=== PATIENT | female | born 1990 | race Caucasian/White ===

== ENCOUNTER → 2023-01-13 10:44 | Outpatient (CLI) | payer BC, SELFPAY ==
[2023-01-13 11:07] LABS: Basophils % 0.3 % (0.1-2.0); Eosinophils # 0.1 K/mm3 (0.0-0.4); Eosinophils % 1.4 % (0.1-12.0); Hematocrit 39.1 % (37.0-47.0); Hemoglobin 12.7 g/dL (12.2-16.2); Lymphocytes # 1.9 K/mm3 (0.7-4.5); Lymphocytes % 23.9 % (10-50); Mean Corpuscular HGB Conc 32.4 g/dL (31.8-35.4); Mean Corpuscular Hemoglobin 31.3 pg (27.0-31.2); Mean Corpuscular Volume 96.6 fl (81-99); Mean Platelet Volume 7.3 fl (7.4-10.4); Monocytes # 0.4 K/mm3 (0.1-1.0); Monocytes % 5.4 % (1.7-9.3); Neutrophils # 5.6 K/mm3 (1.8-7.8); Platelet Count 370 K/mm3 (142-424); Red Blood Count 4.04 M/mm3 (4.20-5.40); Red Cell Distribution Width 13.9 % (11.5-17.5); White Blood Count 8.1 K/mm3 (4.8-10.8)
[2023-01-13 13:05] LABS: Alanine Aminotransferase 17 U/L (12-78); Albumin Level 4.1 g/dl (3.5-5.0); Albumin/Globulin Ratio 1.3 (1.1-1.8); Alkaline Phosphatase 70 U/L (38-126); Anion Gap 15.9 mEq/L (5-15); Aspartate Amino Transferase 25 U/L (14-36); Bilirubin,Total 0.4 mg/dl (0.2-1.3); Blood Urea Nitrogen 17 mg/dl (7-17); Calcium 8.9 mg/dl (8.4-10.2); Carbon Dioxide 26 mmol/L (22.0-30.0); Chloride 103 mmol/L (98-107); Chol/HDL Ratio 2.7 (1-3.5); Cholesterol 218 mg/dl (140-200); Estimated Glomerular Filt Rate 96 ml/min (>60); GFR (African American) 116 ML/MIN (>60); Globulin 3.1 g/dL (1.3-3.2); Glucose 78 mg/dl (74-100); HDL Cholesterol 80 mg/dl (40-60); Potassium 4.9 mmoL/L (3.5-5.1); Sodium 140 mmol/L (136-145); Total Protein,Serum 7.2 g/dl (6.3-8.2); Triglycerides 106 mg/dl (30-150); VLDL Cholesterol 21 mg/dL (0-40)
[2023-01-13 13:16] LABS: Direct LDL Cholesterol 113.91 mg/dL (100-129)
[2023-01-13 13:22] LABS: 25-OH Vitamin D, Total 39.6 ng/mL (30-100)
[2023-01-13 13:24] LABS: T4 (Thyroxine) 10.6 ug/dl (5.53-11.0)
[2023-01-13 13:37] LABS: Thyroid Stimulating Hormone 2.15 uIU/mL (0.465-4.68)
== END ==
PROVIDERS: PCP Emergency Medicine; Visit Provider Emergency Medicine
DX: Z00.00 Encounter for general adult medical examination without abnormal findings (principal); F31.9 Bipolar disorder, unspecified; E66.3 Overweight; Z68.26 Body mass index [BMI] 26.0-26.9, adult
CPT/HCPCS: 36415; 80053; 80061; 82306; 84436; 84443; 85025

== ENCOUNTER → 2023-02-06 23:13 | Outpatient (CLI) | payer BC, SELFPAY | PROVIDERS: PCP Nurse Practitioner Family; Visit Provider Nurse Practitioner Family | DX: N39.0 Urinary tract infection, site not specified (principal) | CPT/HCPCS: 87086 ==

== ENCOUNTER → 2023-04-08 14:16 | Outpatient (CLI) | payer BC, SELFPAY ==
--- NOTE | 2023-04-08 14:52 | XR_ITS ---
FINAL REPORT CLINICAL HISTORY: hip pain FINDINGS: 2 views of the left hip and an AP pelvis were obtained. There is no acute fracture or dislocation. The joint spaces are intact. There are no soft tissue abnormalities. IMPRESSION: No acute process. Reviewed, Interpreted and Dictated by Leonard Condon III, MD Transcribed by Robert Canales Authenticated and [facility]
--- NOTE | 2023-04-08 14:52 | XR_ITS ---
FINAL REPORT CLINICAL HISTORY: hip pain FINDINGS: 2 views of the right hip were obtained. There is no acute fracture or dislocation. The joint spaces are intact. There are no soft tissue abnormalities. IMPRESSION: No acute process. Reviewed, Interpreted and Dictated by Leonard Condon III, MD Transcribed by Robert Canales Authenticated and [facility]
[2023-04-08 15:31] LABS: C-Reactive Protein 12.9 mg/L (0-4)
[2023-04-10 12:21] LABS: Anti-Centromere B Antibodies <0.2 AI (0.0-0.9); Anti-DNA (DS) Ab Qn 2 IU/mL (0-9); Anti-Jo-1 <0.2 AI (0.0-0.9); Anti-Smith Antibody <0.2 AI (0.0-0.9); Antichromatin Antibodies <0.2 AI (0.0-0.9); Antiscleroderma-70 Antibodies <0.2 AI (0.0-0.9); RNP Antibodies <0.2 AI (0.0-0.9); Sjogren's Anti-SS-A <0.2 AI (0.0-0.9); Sjogren's Anti-SS-B <0.2 AI (0.0-0.9)
[2023-04-10 16:06] LABS: Anti-Cyclic Citrullinated Pept 10 units (0-19); RA Latex Turbid. <10.0 IU/mL (<14.0)
[2023-04-11 17:41] LABS: Lupus Reflex Interpretation Comment: (.); PTT-LA 37.9 sec (0.0-43.5); dRVVT 33.7 sec (0.0-47.0)
== END ==
PROVIDERS: PCP Emergency Medicine; Visit Provider Emergency Medicine
DX: M79.2 Neuralgia and neuritis, unspecified (principal); M25.551 Pain in right hip; M25.552 Pain in left hip
CPT/HCPCS: 36415; 73502; 85613; 86140; 86200; 86225; 86235; 86431

== ENCOUNTER → 2023-05-01 12:41 | Outpatient (CLI) | payer BC, SELFPAY ==
--- NOTE | 2023-05-01 12:47 | MR_ITS ---
FINAL REPORT CLINICAL HISTORY: back pain COMPARISON: None FINDINGS: Multiplanar MR imaging of the lumbar spine was performed without contrast. On the sagittal T2-weighted images, disc degeneration is seen at multiple levels. The vertebral alignment is normal. There is no evidence of fracture. No bony mass is identified. The conus has an unremarkable appearance. L1-2: There is no significant canal stenosis or neural foraminal narrowing. L2-3: An annular bulge is present. There is no significant canal stenosis or neural foraminal narrowing. L3-4: An annular bulge is present. There is no significant canal stenosis or neural foraminal narrowing. L4-5: There is a small left foraminal protrusion which produces mild left neural foraminal narrowing. L5-S1: There is a probable right L5 pars intra articularis defect. There is no significant canal stenosis or neural foraminal narrowing. IMPRESSION: Mild multilevel degenerative disc disease and spondylosis as described. 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 If clinically indicated CT could confirm. Reviewed, Interpreted and Dictated by Leonard Condon III, MD Transcribed by Emperatriz Lopez Authenticated and [facility]
== END ==
PROVIDERS: PCP Nurse Practitioner Family; Visit Provider Emergency Medicine
DX: M54.9 Dorsalgia, unspecified (principal); M54.50 Low back pain, unspecified
CPT/HCPCS: 72148; 76376

== ENCOUNTER → 2023-06-06 13:58 | Outpatient (POV) | payer BC, SELFPAY ==
[2023-06-06 14:33] VITALS: BP 126/81; PULSE 82; RESP 18; O2SAT 96; BMI 24.0
--- NOTE | 2023-06-06 14:37 | EXP.PAIN.OV ---
HPI Data of Consult Patient: new to practice Consult date: 06/06/23 Requesting Physician: Ranjan Flores CRNA Primary Care Provider: Gamaliel Cancino MD Consult Narrative Reason for consult: Lumbar back pain. Bilateral hip and leg radicular symptoms. History of present illness: Ms. Samuels is a 32 year old female who comes our clinic today for initial consultation regarding chronic low back pain she describes as constant, dull, aching, sharp, stabbing. Patient also complains of bilateral hip and leg radicular symptoms. She rates her pain 8/10. Patient's lumbar MRI shows multilevel degenerative disc. Multilevel disc bulge. L3-4, L4-5 as well as L5-S1. Also, probable right L5 pars interarticularis defect. No significant canal stenosis or neuroforaminal narrowing. Patient was treated by PCP with Tylenol 3. She is also been taking NSAIDs as needed. Patient's Navid #[id number] has been reviewed and appropriate. Patient also taking ADHD medication chronically. I discussed in detail with the patient regarding treatment options. We will start with physical therapy for the lumbar spine. I will start the patient on Mobic 15 mg 1 daily. CC: Ranjan Flores CRNA [facility] Disclaimer: The information contained in this section may have been updated after the patient was seen, as this information can be updated by other users. Medical History Anxiety Depression Manic bipolar I disorder Neuropathic pain Surgical History H/O: Family History (Updated 06/06/23 @ 14:35 by Chetna Rocha RN) Other Unknown family medical history Social History (Updated 06/06/23 @ 14:36 by Chetna Rocha RN) Smoking Status: Never smoker alcohol intake: never substance use type: denies use current occupational status: employed Travel in the last 8 weeks: None Meds Home Medications and Allergies Home Medications Medication Instructions Recorded Confirmed Type norethindrone 1 mg-ethinyl 1 tab PO 01/03/23 05/07/23 History estradiol 10 mcg (24)-iron 10 mcg(2) tablet (Lo Loestrin Fe) diclofenac sodium 1 % topical gel 2 g topical QID #100 grams 04/08/23 05/07/23 Rx lidocaine 5 % topical patch 1 patch topical DAILY #30 ea 04/08/23 05/07/23 Rx acetaminophen 300 mg-codeine 30 mg 1 tab PO BID 10 days #20 tabs 04/25/23 05/07/23 Rx tablet cariprazine 3 mg capsule (Vraylar) 3 mg PO DAILY #30 caps 05/07/23 Rx clonazepam 1 mg tablet (Klonopin) 1 mg PO TID #90 tabs 05/07/23 05/07/23 Rx dextroamphetamine-amphetamine 20 20 mg PO BID #60 tabs 05/07/23 05/07/23 Rx mg tablet (Adderall) gabapentin 600 mg tablet 600 mg PO TID #90 tabs 05/07/23 05/07/23 Rx temazepam 30 mg capsule (Restoril) 30 mg PO HS #30 caps 05/07/23 05/07/23 Rx New Prescriptions to Start Prescriptions: Allergies Allergy/AdvReac Type Severity Reaction Status Date / Time azithromycin [From Zithromax] AdvReac Verified 05/07/23 08:27 Assessment and Plan *Assessment and plan (1) Lumbar radicular pain: Status: Acute Category: Medical Code(s): M54.16 - Radiculopathy, lumbar region (2) Lumbar back pain: Status: Acute Category: Medical Code(s): M54.50 - Low back pain, unspecified Plan I will send the patient for physical therapy for the lumbar back as well as bilateral hip and leg radicular symptoms. We will start Mobic 15 mg 1 p.o. daily. Patient will return to see us after physical therapy. I briefly discussed with her regarding injection interventions for the low back. Answered her questions.
== END ==
LOC: SC.PAIN 13:59
PROVIDERS: PCP Emergency Medicine; Visit Provider Nurse Anesthetist, Certified Registered
DX: M54.16 Radiculopathy, lumbar region (principal); M54.50 Low back pain, unspecified
CPT/HCPCS: 99202; G0463

== ENCOUNTER 2023-07-24 16:00 | Outpatient (RCR) | payer BC, SELFPAY ==
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
== END 2023-07-24 17:00 | disposition home or self-care (01) ==
LOC: PT 16:00
PROVIDERS: PCP Emergency Medicine; Visit Provider Nurse Practitioner Family
DX: M51.36 Other intervertebral disc degeneration, lumbar region (principal); M54.50 Low back pain, unspecified
CPT/HCPCS: 97010; 97014; 97110; 97163; G0283

== ENCOUNTER 2023-07-24 18:07 | Emergency (ER) | payer BC, SELFPAY ==
--- NOTE | 2023-07-24 18:04 | ECG_ITS ---
APPROVED REPORT Exam: Resting ECG HR:90 bpm ECG Measurements Heart Rate 90 AXES OH 158 P 73 QRSd 74 QRS 89 QT 335 T 68 QTc 383 Conclusion SINUS RHYTHM NORMAL ECG UNCONFIRMED REPORT Electronically signed by : Alfonso Zacarias MD 07/25/2023 07:46:34
[2023-07-24 18:07] VITALS: BP 105/74; PULSE 95; RESP 17; TEMP 36.4; O2SAT 100; BMI 23.5
--- NOTE | 2023-07-24 18:22 | HMH.EDGENADL ---
Discharge Plan Disposition Patient Disposition: Left Against Medical Advice Chief Complaint: Overdose Prescriptions Prescriptions: No Action Lo Loestrin Fe 1 mg-10 mcg (24)/10 mcg (2) tablet 1 tab PO DIRECTED diclofenac sodium 1 % gel 2 g topical QID Qty: 100 1RF Rx Instructions: apply to single elbow, wrist or hand; for hand includes palm/fingers/back of hand lidocaine 5 % adhesive patch,medicated 1 patch topical DAILY Qty: 30 1RF Rx Instructions: leave on most painful area for up to 12 hrs clonazepam [Klonopin] 1 mg tablet 1 mg PO TID Qty: 90 1RF gabapentin 600 mg tablet 600 mg PO TID Qty: 90 1RF temazepam [Restoril] 30 mg capsule 30 mg PO HS Qty: 30 1RF dextroamphetamine-amphetamine [Adderall] 20 mg tablet 20 mg PO BID Qty: 60 0RF Rx Instructions: administer doses at least 4-6 hours apart acetaminophen-codeine 300-30 mg tablet 1 tab PO BID 10 Days Qty: 20 0RF Vraylar 3 mg capsule 3 mg PO DAILY Qty: 30 2RF Referrals Follow up/Referrals: Provider,Referral, MD [Primary Care Provider] - See instructions Clinical Impressions Clinical Impression: Opiate overdose Discharge ED Provider: Smiley Greene General Adult HPI General Chief complaint: Overdose Stated complaint: Overdose Time Seen by Provider: 07/24/23 18:16 Mode of Arrival: EMS Source of Information: Patient and EMS Limitations: No Limitations Description of Symptoms (Recalled from ER Triage Doc. by RN): pt presents to ED for overdose. pt reports she does have chronic back pain, when she was getting off work a friend of hers gave her some pills in an ibuprofen bottle . pt reports that she waited to get home before she took the pills. pt states that she only remembers taking the pills and putting up her tarot cards and then she woke up to her above her. pt did receive 2mg of nasal narcan and did wake up and respond well to that. History of Present Illness HPI narrative: Is a 32-year-old female presenting today after an overdose. She states that she was at a [employer] party at work told someone that she was having some chronic back pain and they gave her 3 pills out of an ibuprofen bottle. She does not recall events following this. EMS was called she had a pulse and was breathing upon their arrival apparently there may have been some bystander CPR but this is not clear. She received a total of 2 mg of nasal Narcan and responded well to that. She denies any other coingestions or any attempt to harm herself. Unsure as to exactly what she took. Denies any history of recent injection drug use has recently been tested for HIV and hepatitis C and was negative for that. Other than the back pain denies any other significant medical problems in the past. Related Data Home Medications Medication Instructions Recorded Confirmed norethindrone 1 mg-ethinyl 1 tab PO DIRECTED 01/03/23 05/07/23 estradiol 10 mcg (24)-iron 10 mcg(2) tablet (Lo Loestrin Fe) Previous Rx's Medication Instructions Recorded diclofenac sodium 1 % topical gel 2 g topical QID #100 grams 04/08/23 lidocaine 5 % topical patch 1 patch topical DAILY #30 ea 04/08/23 acetaminophen 300 mg-codeine 30 mg 1 tab PO BID 10 days #20 tabs 04/25/23 tablet cariprazine 3 mg capsule (Vraylar) 3 mg PO DAILY #30 caps 05/07/23 clonazepam 1 mg tablet (Klonopin) 1 mg PO TID #90 tabs 05/07/23 dextroamphetamine-amphetamine 20 20 mg PO BID #60 tabs 05/07/23 mg tablet (Adderall) gabapentin 600 mg tablet 600 mg PO TID #90 tabs 05/07/23 temazepam 30 mg capsule (Restoril) 30 mg PO HS #30 caps 05/07/23 Allergies Allergy/AdvReac Type Severity Reaction Status Date / Time azithromycin [From Zithromax] AdvReac Verified 05/07/23 08:27 [facility] Disclaimer: The information contained in this section may have been updated after the patient was seen, as this information can be updated by other users. Medical History Anxiety Depression Manic bipolar I disorder Neuropathic pain Surgical History H/O: Family History (Updated 06/06/23 @ 14:35 by Chetna Rocha RN) Other Unknown family medical history Social History (Updated 06/06/23 @ 14:36 by Chetna Rocha RN) Smoking Status: Current every day smoker alcohol intake: never substance use type: denies use current occupational status: employed Travel in the last 8 weeks: None ROS Obtained: Yes All systems reviewed & no additional complaints except as documented Physical Exam General General appearance: alert and lethargic Respiratory Respiratory exam: Present normal lung sounds bilaterally Cardiovascular Cardiovascular exam: Present regular rate Neurological Exam Neurological exam: Present alert, oriented X3 and other (Patient somewhat somnolent but has a GCS of 15 and a nonfocal neurologic exam) Medical Decision Making Navid Inquiry Pt receiving controlled substance: No Vital Signs: 07/24/23 18:07 07/24/23 19:31 Temperature 97.5 F L Temperature Source Oral Pulse Rate 105 H Pulse Rate [Left Radial] 95 H Respiratory Rate 17 18 Blood Pressure 109/76 L Blood Pressure [Right Arm] 105/74 L Blood Pressure Mean [Right Arm] 84 Blood Pressure Source Automatic Cuff Blood Pressure Position Sitting 02 Sat by Pulse Oximetry 100 100 Oxygen Delivery Method Room Air Room Air Medical Decision Narrative: Is a 32-year-old female who was healthy prior to taking unknown substances at a [employer]. Given the fact that she had respiratory depression and responded with Narcan and this is consistent with an opioid overdose. Most likely fentanyl or heroin. No indication for testing for coingestions at this point. Will observe her for several hours and reassess just to make sure that she has no ongoing respiratory depression and that she did not take something more long-acting. She has no current complaints. In ED observation order was placed at 6:24 PM I will reassess her in about 2 hours. EKG performed which I first interpreted shows a ventricular rate of 90 normal sinus rhythm specifically no evidence of any significant conduction abnormalities to suggest an alternative overdose agent such as sodium channel blockade etc. Normal axis no acute ischemic changes nondiagnostic emergency EKG. At 739 patient states that she would like to leave. My plan was to keep an eye on her for 2 hours she is awake alert oriented answering questions appropriately has a medical decision capacity to make this decision I advised her that if her opiates are long-acting she could have recurrence of symptoms which is unlikely at this point but she understands her could be disability and and she signed out AGAINST MEDICAL ADVICE. Critical Care Critical Care Time Critical Care Time: No
[2023-07-24 19:31] VITALS: BP 109/76; PULSE 105; RESP 18; O2SAT 100
[2023-07-24 19:42] VITALS: BP 109/76; PULSE 105; RESP 18; TEMP 36.8; O2SAT 99
== END 2023-07-24 19:46 | disposition left against medical advice (07) ==
PROVIDERS: Emergency Provider Student in an Organized Health Care Education/Training Program
DX: T40.2X1A Poisoning by other opioids, accidental (unintentional), initial encounter (principal); G62.9 Polyneuropathy, unspecified; F17.200 Nicotine dependence, unspecified, uncomplicated
CPT/HCPCS: 93005; 99283

== ENCOUNTER 2024-09-04 13:07 | Emergency (ER) | payer BC, SELFPAY ==
[2024-09-04 13:11] VITALS: BP 143/101; PULSE 85; RESP 20; TEMP 36.7; O2SAT 100; BMI 22.3
[2024-09-04 13:30] VITALS: BP 123/85; PULSE 74; O2SAT 96
[2024-09-04 13:34] LABS: Microscopic, Urine URINE MICROSCOPIC (MICROSCOPIC)
--- NOTE | 2024-09-04 13:38 | PC.NURSE ---
staff at bedside to attempt u/s guided IV and blood draw, as pt reports: no one can get me. I have to have them poke every single finger to get my blood . Dr. Guerin notified that pt is a difficulty stick.
[2024-09-04 13:44] LABS: Appearance,Urine SL CLOUDY (Clear); Bilirubin,Urine Negative (Negative); Blood, Urine 3+ (Negative); Color,Urine YELLOW (Yellow); Glucose,Urine (UA) Negative (Negative); Ketones,Urine Negative (Negative); Leukocyte Esterase,Urine 1+ (Negative); Nitrate,Urine POSITIVE (Negative); PH,Urine 6.5 (5.0-8.5); Protein,Urine Negative (Negative); Urobilinogen,Urine 0.2 EU/dl (0.2)
--- NOTE | 2024-09-04 13:45 | PC.NURSE ---
ATTEMPTED TO PLACE IV VIA US, IV IN PLACE, PT MOVING AROUND IN BED, UNCOMFORTABLE. UNABLE TO SECURE IV. PT STATES SHE DOESN'T WANT TO BE STUCK AGAIN. AWARE
--- NOTE | 2024-09-04 13:54 | PC.NURSE ---
DR KAUR AT BEDSIDE TO UPDATE PT, ATTEMPT TO START USIV
[2024-09-04 14:06] LABS: Bacteria,Urine 4+ /lpf
[2024-09-04 14:08] VITALS: PULSE 76; O2SAT 100
[2024-09-04 14:17] LABS: Basophils % 0.3 % (0.1-2.0); Eosinophils % 0.3 % (0.1-12.0); Hematocrit 38.9 % (37.0-47.0); Hemoglobin 12.8 g/dL (12.2-16.2); Lymphocytes # 1.8 K/mm3 (0.7-4.5); Lymphocytes % 28.3 % (10-50); Mean Corpuscular HGB Conc 32.9 g/dL (31.8-35.4); Mean Corpuscular Hemoglobin 31.7 pg (27.0-31.2); Mean Corpuscular Volume 96.3 fl (81-99); Mean Platelet Volume 9.4 fl (7.4-10.4); Monocytes # 0.6 K/mm3 (0.1-1.0); Monocytes % 9.1 % (1.7-9.3); Neutrophils # 3.9 K/mm3 (1.8-7.8); Neutrophils % 61.8 % (37.0-80.0); Platelet Count 275 K/mm3 (142-424); Red Blood Count 4.04 M/mm3 (4.20-5.40); Red Cell Distribution Width 12.6 % (11.5-17.5); White Blood Count 6.2 K/mm3 (4.8-10.8)
--- NOTE | 2024-09-04 14:27 | PC.NURSE ---
rn went to place bp cuff back on patient to continue monitor after ultrasound iv placed and pt states i cant tolerate that around my arm right now rn laid cuff next to patient on bed and made er dr and charge nurse aware
--- NOTE | 2024-09-04 14:32 | HMH.EDGENADL ---
Discharge Plan Disposition Patient Disposition: Home, Self-Care Condition: Good Prescriptions Prescriptions: New nitrofurantoin monohyd/m-cryst [Macrobid] 100 mg capsule 100 mg PO BID 5 Days Qty: 10 0RF Rx Instructions: must administer with a meal/food No Action clonazepam [Klonopin] 1 mg tablet 1 mg PO TID Qty: 90 1RF Vraylar 3 mg capsule 3 mg PO DAILY Qty: 30 2RF Referrals Follow up/Referrals: Abe Gutierrez MD [Primary Care Provider] - See instructions Activity Restrictions/Add. Instructions Additional Instructions/Restrictions: Call Dr. Cagle's office on Friday to schedule an appointment. Say that you were seen in the ED and she will see you next week. Return to the emergency department if you feel lightheaded, have worsening bleeding or become concerned for your health. Clinical Impressions Clinical Impression: UTI (urinary tract infection), Vaginal bleeding Instructions Patient Instructions: DI for Acute Abdominal Pain Print Language Print Language: Turkish Discharge ED Provider: Mayra Guerin General Adult HPI <Mayra Guerin MD - Last Filed: 09/04/24 15:21> General Chief complaint: Abdominal Pain Stated complaint: Miscarrige+2, vaginal bleeding and abd/back pain Time Seen by Provider: 09/04/24 13:18 Mode of Arrival: Ambulatory Source of Information: Patient Limitations: No Limitations Description of Symptoms (Recalled from ER Triage Doc. by RN): Patient presents ambulatory to triage. States she had a miscarriage two weeks ago. States she did not go to the OBGYN. States she performed three urine tests at home, then fell, and subsequently started bleeding. Patient states, I've had a miscarriage before so I know what they're like. Endorses abdominal pain, nausea, and vomiting. Denies urinary symptoms. Patient states she has a history of anemia with multiple blood transfusions throughout her life. States she is continuing to bleed. Denies passing clots. States she is currently going through two large pads a day. History of Present Illness HPI narrative: 34-year-old female G8, P5 presents to the ER with complaints of lower abdominal pain and vaginal bleeding. She reports she believes she had a miscarriage 2 weeks ago. She has had multiple positive urine test at home beginning 3 weeks ago. Shortly after her initial positive test she had a fall and then started bleeding. She states that she has had miscarriages before so she knows what they are like. She has had low abdominal pain, nausea, vomiting. She denies dysuria or hematuria, she states the pain does radiate to her low back and feels cramping. She states some days she has heavy bleeding pouring out but today she has decreased bleeding. She states she has passed clots. She is going through 2 large pads a day at this time. She states she is concerned for retained products because she has had that previously. She has not taken any medications for her symptoms today. She has had previous C-sections but no other abdominal surgeries. She denies fevers, chills, headache, dizziness, numbness, tingling, weakness, chest pain, shortness of breath, or cough. Related Data Previous Rx's ?Medication ?Instructions ?Recorded cariprazine 3 mg capsule (Vraylar) 3 mg PO DAILY #30 caps 05/07/23 clonazepam 1 mg tablet (Klonopin) 1 mg PO TID #90 tabs 05/07/23 nitrofurantoin 100 mg PO BID 5 days #10 caps 09/04/24 monohydrate/macrocrystals 100 mg capsule (Macrobid) Allergies Allergy/AdvReac Type Severity Reaction Status Date / Time azithromycin (From Zithromax) AdvReac Verified 05/07/23 08:27 [facility] <Mayra Guerin MD - Last Filed: 09/04/24 15:21> [facility] Disclaimer: The information contained in this section may have been updated after the patient was seen, as this information can be updated by other users. Medical History Anxiety Depression Manic bipolar I disorder Neuropathic pain Surgical History H/O: Family History (Updated 06/06/23 @ 14:35 by Chetna Rocha RN) Other Unknown family medical history Social History (Updated 06/06/23 @ 14:36 by Chetna Rocha RN) Smoking Status: Current every day smoker alcohol intake: never substance use type: denies use current occupational status: employed Travel in the last 8 weeks: None Have you lived/traveled outside US in past 30 days?: No Contact w/someone who lives/traveled outside US past 30 days?: No Exposure to someone with infectious disease in past 14 days?: No Do you have a fever (greater than 100.4 F or 38 C)?: No Have you tested positive for COVID-19: No Exposed to someone with COVID-19 in past 14 days?: No Do you have a sore throat?: No Do you have a cough?: No Do you have any weakness?: No Do you have any diarrhea?: No Are you experiencing any unusual bleeding?: No Do you have any muscle aches/pain?: No Do you have any abdominal pain?: Yes Are you experiencing loss of taste or smell?: No Other Medical History Have you received the Flu Vaccine for this season: No Have you received the Pneumonia Vaccine: No <Mayra Guerin MD - Last Filed: 09/04/24 15:21> ROS Obtained: Yes Systems reviewed as appropriate & no additional complaints except as documented Physical Exam <Mayra Guerin MD - Last Filed: 09/04/24 15:21> General General appearance: alert and in no apparent distress Head Head exam: atraumatic and normocephalic Eye Eye exam: Present PERRL and EOMI ENT ENT exam: Present mucous membranes moist Neck Neck exam: Present normal inspection and full ROM Chest Chest inspection: Present symmetric chest wall rise Respiratory Respiratory exam: Absent respiratory distress or stridor Cardiovascular Cardiovascular exam: Present regular rate and normal rhythm Abdominal Exam Abdominal exam: Present soft, tenderness (Suprapubic) and guarding (Voluntary); Absent distention, rebound or rigidity Extremities Exam Extremities exam: Present full ROM Neurological Exam Neurological exam: Present alert and oriented X3; Absent motor sensory deficit Psychiatric Psychiatric exam: Present normal affect and normal mood Skin Skin exam: Present warm and dry Medical Decision Making <Mayra Guerin MD - Last Filed: 09/04/24 15:21> Medical Records Medical records reviewed: Yes I reviewed the patient's medical records. Screening: Per USPSTF and CDC recommendations, given the prevalence of disease in our region, it is our hospital?s policy to screen for HIV and viral Hepatitis for all patients aged 18 and over and those with ongoing risk factors. MR Comment: Patient has been seen by pain management for lumbar back pain with radicular symptoms. Patient was recommended for physical therapy and started Mobic. She never followed back up with pain management after that visit. Navid Inquiry Pt receiving controlled substance: No Vital Signs: 09/04/24 13:11 09/04/24 13:30 09/04/24 14:08 Temperature 98.1 F Temperature Source Oral Pulse Rate 74 76 Pulse Rate [Radial] 85 Respiratory Rate 20 Blood Pressure 123/85 Blood Pressure [R Arm] 143/101 H Blood Pressure Mean [R Arm] 115 Blood Pressure Position [R Arm] Sitting 02 Sat by Pulse Oximetry 100 96 100 Oxygen Delivery Method Room Air Room Air Lab Data Lab Results 09/04/24 13:20: Urine Color Yellow, Urine Appearance Sl cloudy, Urine pH 6.5, Ur Specific [place] 1.020, Urine Protein Negative, Urine Glucose (UA) Negative, Urine Ketones Negative, Urine Blood 3+ A, Urine Nitrate Positive A, Urine Bilirubin Negative, Urine Urobilinogen 0.2, Ur Leukocyte Esterase 1+ A, Urine RBC 5-10, Urine WBC 10-20, Ur Squamous Epith Cells 3-5, Urine Bacteria 4+ 09/04/24 13:46: Sodium 138, Potassium 4.3, Chloride 101, Carbon Dioxide 30, Anion Gap 11.3, BUN 10, Creatinine 0.70, Estimated Creat Clear 103, Estimated GFR 95, Est GFR ( Amer) 115, Glucose 86, Calcium 9.1, Total Bilirubin 0.2, AST 27, ALT 20, Alkaline Phosphatase 62, Total Protein 7.4, Albumin 4.3, Globulin 3.1, Albumin/Globulin Ratio 1.4, HCG, Quant < 2 09/04/24 14:00: HCV Ab ASHLEY w/Rflx PCR Qn Reactive, HIV Ag/Ab Combo Qual Negative 09/04/24 14:08: WBC 6.2, RBC 4.04 L, Hgb 12.8, Hct 38.9, MCV 96.3, MCH 31.7 H, MCHC 32.9, RDW 12.6, Plt Count 275, MPV 9.4, Neut % (Auto) 61.8, Lymph % (Auto) 28.3, [place] % (Auto) 9.1, Eos % (Auto) 0.3, Baso % (Auto) 0.3, Neut # (Auto) 3.9, Lymph # (Auto) 1.8, [place] # (Auto) 0.6, Eos # (Auto) 0.0, Baso # (Auto) 0.0, Blood Type A Positive 09/04/24 14:08 09/04/24 13:46 Orders (Tests/Meds): ED MEDICATIONS Discontinued Medications Generic Name Dose Route Start Last Admin Trade Name Warner PRN Reason Stop Dose Admin Ketorolac Tromethamine 15 mg 09/04/24 15:05 09/04/24 15:52 Ketorolac 30mg/Ml Vial IV 09/04/24 15:06 15 mg ONCE ONE Administration Nitrofurantoin Macrocrystals 100 mg 09/04/24 14:22 09/04/24 15:52 Nitrofurantoin 100mg Capsule PO 09/04/24 14:23 100 mg ONCE ONE Administration ORDERS Category Date Time Status ABO/RH Type Stat BBK 09/04/24 14:08 Completed Beta HCG, Quant [HCG,Quantitative] Stat Lab 09/04/24 13:46 Completed CBC w/Auto Diff [Complete Blood Count Auto Diff] Stat Lab 09/04/24 14:08 Completed CMP [Comprehensive Metabolic Panel] Stat Lab 09/04/24 13:46 Completed HCV RNA PCR, Quant Stat Lab 09/04/24 14:00 Received HIV Combo Stat Lab 09/04/24 14:00 Completed Hepatitis C Ab Qual. W/ RFX Stat Lab 09/04/24 14:00 Completed PT INR [Prothrombin Time INR] Stat Lab 09/04/24 Received PTT [Activated Partial Thrombo Time] Stat Lab 09/04/24 Received Urinalysis and Microscopic Stat Lab 09/04/24 13:20 Completed Urine Culture Stat Micro 09/04/24 13:20 Received US OB transvaginal Stat Ultrasound 09/04/24 14:57 Taken Medical Decision Narrative: In summary, this 34-year-old female G8, P5 believed to be approximately 6-7 weeks based on LMP presents to the emergency department today with abdominal pain, vaginal bleeding. On initial evaluation patient is hemodynamically stable, afebrile, she does have suprapubic tenderness to palpation with voluntary guarding, no rebound, no peritonitic findings. Differential diagnosis includes but is not limited to intrauterine , ectopic, miscarriage, retained products of conception, anemia, coagulopathy, urinary tract infection, also considered appendicitis though I have lower suspicion for this given patient's multiple weeks of lower abdominal pain and vaginal bleeding. Based on these concerns, I ordered serum labs including quantitative hCG, urine studies, coags. Labs personally reviewed demonstrate patient has evidence of urinary tract infection nitrate positive with WBCs and bacteria. Receiving Macrobid for treatment. She has no leukocytosis, no anemia, normal platelets. CMP, quantitative hCG, coags pending. Transvaginal ultrasound has been ordered, this is also pending. Patient handed off to Dr. Sutton at physician shift change for further management and disposition. <Alexys Sutton MD - Last Filed: 09/04/24 16:09> Vital Signs: 09/04/24 13:11 09/04/24 13:30 09/04/24 14:08 Temperature 98.1 F Temperature Source Oral Pulse Rate 74 76 Pulse Rate [Radial] 85 Respiratory Rate 20 Blood Pressure 123/85 Blood Pressure [R Arm] 143/101 H Blood Pressure Mean [R Arm] 115 Blood Pressure Position [R Arm] Sitting 02 Sat by Pulse Oximetry 100 96 100 Oxygen Delivery Method Room Air Room Air Lab Data Lab Results 09/04/24 13:20: Urine Color Yellow, Urine Appearance Sl cloudy, Urine pH 6.5, Ur Specific [place] 1.020, Urine Protein Negative, Urine Glucose (UA) Negative, Urine Ketones Negative, Urine Blood 3+ A, Urine Nitrate Positive A, Urine Bilirubin Negative, Urine Urobilinogen 0.2, Ur Leukocyte Esterase 1+ A, Urine RBC 5-10, Urine WBC 10-20, Ur Squamous Epith Cells 3-5, Urine Bacteria 4+ 09/04/24 13:46: Sodium 138, Potassium 4.3, Chloride 101, Carbon Dioxide 30, Anion Gap 11.3, BUN 10, Creatinine 0.70, Estimated Creat Clear 103, Estimated GFR 95, Est GFR ( Amer) 115, Glucose 86, Calcium 9.1, Total Bilirubin 0.2, AST 27, ALT 20, Alkaline Phosphatase 62, Total Protein 7.4, Albumin 4.3, Globulin 3.1, Albumin/Globulin Ratio 1.4, HCG, Quant < 2 09/04/24 14:00: HCV Ab ASHLEY w/Rflx PCR Qn Reactive, HIV Ag/Ab Combo Qual Negative 09/04/24 14:08: WBC 6.2, RBC 4.04 L, Hgb 12.8, Hct 38.9, MCV 96.3, MCH 31.7 H, MCHC 32.9, RDW 12.6, Plt Count 275, MPV 9.4, Neut % (Auto) 61.8, Lymph % (Auto) 28.3, [place] % (Auto) 9.1, Eos % (Auto) 0.3, Baso % (Auto) 0.3, Neut # (Auto) 3.9, Lymph # (Auto) 1.8, [place] # (Auto) 0.6, Eos # (Auto) 0.0, Baso # (Auto) 0.0, Blood Type A Positive Orders (Tests/Meds): ED MEDICATIONS Discontinued Medications Generic Name Dose Route Start Last Admin Trade Name Freq PRN Reason Stop Dose Admin Ketorolac Tromethamine 15 mg 09/04/24 15:05 09/04/24 15:52 Ketorolac 30mg/Ml Vial IV 09/04/24 15:06 15 mg ONCE ONE Administration Nitrofurantoin Macrocrystals 100 mg 09/04/24 14:22 09/04/24 15:52 Nitrofurantoin 100mg Capsule PO 09/04/24 14:23 100 mg ONCE ONE Administration ORDERS Category Date Time Status ABO/RH Type Stat BBK 09/04/24 14:08 Completed Beta HCG, Quant [HCG,Quantitative] Stat Lab 09/04/24 13:46 Completed CBC w/Auto Diff [Complete Blood Count Auto Diff] Stat Lab 09/04/24 14:08 Completed CMP [Comprehensive Metabolic Panel] Stat Lab 09/04/24 13:46 Completed HCV RNA PCR, Quant Stat Lab 09/04/24 14:00 Received HIV Combo Stat Lab 09/04/24 14:00 Completed Hepatitis C Ab Qual. W/ RFX Stat Lab 09/04/24 14:00 Completed PT INR [Prothrombin Time INR] Stat Lab 09/04/24 Received PTT [Activated Partial Thrombo Time] Stat Lab 09/04/24 Received Urinalysis and Microscopic Stat Lab 09/04/24 13:20 Completed Urine Culture Stat Micro 09/04/24 13:20 Received US OB transvaginal Stat Ultrasound 09/04/24 14:57 Taken Medical Decision Narrative: In summary, this 34-year-old female G8, P5 believed to be approximately 6-7 weeks based on LMP presents to the emergency department today with abdominal pain, vaginal bleeding. On initial evaluation patient is hemodynamically stable, afebrile, she does have suprapubic tenderness to palpation with voluntary guarding, no rebound, no peritonitic findings. Differential diagnosis includes but is not limited to intrauterine , ectopic, miscarriage, retained products of conception, anemia, coagulopathy, urinary tract infection, also considered appendicitis though I have lower suspicion for this given patient's multiple weeks of lower abdominal pain and vaginal bleeding. Based on these concerns, I ordered serum labs including quantitative hCG, urine studies, coags. Labs personally reviewed demonstrate patient has evidence of urinary tract infection nitrate positive with WBCs and bacteria. Receiving Macrobid for treatment. She has no leukocytosis, no anemia, normal platelets. CMP, quantitative hCG, coags pending. Transvaginal ultrasound has been ordered, this is also pending. Patient handed off to Dr. Sutton at physician shift change for further management and disposition. I Alexys Sutton MD took over care of this patient that [id number]. Transvaginal ultrasound was unremarkable without IUP or products of retained conception. hCG negative. Patient has had no further bleeding while here and pain is improved after Toradol. I had an interactive discussion with the dinkey brakeman Dr. Cagle on-call and she will follow-up the patient next week in clinic. Strict precautions are discussed, all questions answered patient and will plan to discharge at this time. Procedures <Mayra Guerin MD - Last Filed: 09/04/24 15:21> Miscellaneous Procedure Procedure Performed: Ultrasound-guided IV Indication: Need for peripheral IV access, multiple failed nursing attempts Consent provided by patient after discussing risks and benefits Procedure details: 20-gauge ultrasound-guided IV placed just proximal to the right AC under real-time ultrasound guidance on the first attempt. Draws and flushes. Secured with Tegaderm. Post procedure: Neurovascularly intact, no changes Patient tolerated procedure well, no complications Critical Care <Mayra Guerin MD - Last Filed: 09/04/24 15:21> Critical Care Time Critical Care Time: No
[2024-09-04 14:42] LABS: Albumin Level 4.3 g/dl (3.5-5.0); Chloride 101 mmol/L (98-107); Potassium 4.3 mmoL/L (3.5-5.1); Sodium 138 mmol/L (136-145)
[2024-09-04 14:45] LABS: Alanine Aminotransferase 20 U/L (12-78); Albumin/Globulin Ratio 1.4 (1.1-1.8); Alkaline Phosphatase 62 U/L (38-126); Anion Gap 11.3 mEq/L (5-15); Aspartate Amino Transferase 27 U/L (14-36); Bilirubin,Total 0.2 mg/dl (0.2-1.3); Blood Urea Nitrogen 10 mg/dl (7-17); Calcium 9.1 mg/dl (8.4-10.2); Carbon Dioxide 30 mmol/L (22.0-30.0); Creatinine Clearance Estimated 103 mL/min (50-200); Estimated Glomerular Filt Rate 95 ml/min (>60); GFR (African American) 115 ML/MIN (>60); Globulin 3.1 g/dL (1.3-3.2); Glucose 86 mg/dl (74-100); Total Protein,Serum 7.4 g/dl (6.3-8.2)
--- NOTE | 2024-09-04 14:57 | US_ITS ---
PROCEDURE INFORMATION: Exam: US , Transvaginal Exam date and time: 09/04/2024 3:25 PM Age: 34 years old Clinical indication: Lmp or gestational age (in weeks): Unknown; Other: Bleeding; Additional info: Vaginal bleeding, R/O retained prod. Vs ectopic TECHNIQUE: Imaging protocol: Real-time transvaginal obstetrical ultrasound of the maternal pelvis with image documentation. Transvaginal imaging was used for better evaluation of the fetus, adnexa, and/or cervix. COMPARISON: MR LUMBAR SPINE WO CON 05/01/2023 1:08 PM FINDINGS: Gestation: No intrauterine .. No evidence of retained products of conception MATERNAL: Right ovary/adnexa: Right ovary measures 2.66 cm x 1.91 cm x 2.14 cm. Right ovarian volume is 5.69 mL. Peak systolic velocity right ovary 16 cm/s Left ovary/adnexa: Left ovary measures 2.12 cm x 2.47 cm x 1.6 cm. Left ovarian volume is 4.39 mL. Peak systolic velocity left ovary 16 cm/s IMPRESSION: No intrauterine ..
[2024-09-04 15:02] LABS: HCG,Quantitative < 2 mIU/ml (0-5.42)
--- NOTE | 2024-09-04 15:10 | PC.NURSE ---
Patient given a warm blanket
--- NOTE | 2024-09-04 15:32 | PC.NURSE ---
pt to us
[2024-09-04 15:49] LABS: HIV Combo NEGATIVE (Negative)
[2024-09-04] MEDS: KETOROLAC 30MG/ML VIAL 15 MG IV (15:52)
[2024-09-04] MEDS: NITROFURANTOIN 100MG CAPSULE 100 MG PO (15:52)
[2024-09-04 15:56] LABS: Hepatitis C Ab Qual. W/ RFX REACTIVE (Negative)
--- NOTE | 2024-09-04 15:57 | PC.NURSE ---
dr yee speaking with ob hot stone setter
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
[2024-09-04 16:15] VITALS: BP 120/80; PULSE 80; RESP 18; TEMP 36.7; O2SAT 98
[2024-09-04 16:38] LABS: Activated Partial Thrombo Time 24.6 seconds (22.5-28.5); INR 0.83 (0.9-1.1); Prothrombin Time 9.4 seconds (9.2-12.1)
--- NOTE | 2024-09-05 19:03 | PC.NURSE ---
URINE CULTURE DISCUSSED WITH DR DANIEL, NO NEW ORDERS
== END 2024-09-04 16:28 | disposition home or self-care (01) ==
PROVIDERS: Emergency Provider Emergency Medicine; PCP Social Worker
DX: O02.1 Missed abortion (principal); N93.9 Abnormal uterine and vaginal bleeding, unspecified; N39.0 Urinary tract infection, site not specified; R11.2 Nausea with vomiting, unspecified; M54.50 Low back pain, unspecified; R10.30 Lower abdominal pain, unspecified; Z72.0 Tobacco use
CPT/HCPCS: 76817; 80053; 81001; 84702; 85025; 85610; 85730; 86803; 86900; 86901; 87086; 87088; 87186; 87389; 87522; 96374; 99283; J1885

== ENCOUNTER 2024-09-15 14:05 | Emergency (ER) | payer SELFPAY ==
[2024-09-15 14:13] VITALS: BP 106/77; PULSE 70; RESP 24; TEMP 36.8; O2SAT 100; BMI 20.5
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
--- NOTE | 2024-09-15 14:39 | PC.NURSE ---
UA sent to lab
[2024-09-15 14:44] VITALS: BP 109/90; PULSE 64; O2SAT 100
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
[2024-09-15] MEDS: ACETAMINOPHEN 500MG TAB 1000 MG PO (14:57)
[2024-09-15] MEDS: KETOROLAC 30MG/ML VIAL 15 MG IV (14:57)
--- NOTE | 2024-09-15 15:03 | PC.NURSE ---
US IV insertion complete. pt tolerated well. call clement in reach.
[2024-09-15 15:06] LABS: Basophils % 0.5 % (0.1-2.0); Eosinophils # 0.1 K/mm3 (0.0-0.4); Eosinophils % 1.2 % (0.1-12.0); Hematocrit 35.5 % (37.0-47.0); Lymphocytes # 1.8 K/mm3 (0.7-4.5); Lymphocytes % 29.9 % (10-50); Mean Corpuscular HGB Conc 33.8 g/dL (31.8-35.4); Mean Corpuscular Hemoglobin 32.2 pg (27.0-31.2); Mean Corpuscular Volume 95.2 fl (81-99); Mean Platelet Volume 9.3 fl (7.4-10.4); Monocytes # 0.5 K/mm3 (0.1-1.0); Monocytes % 8.4 % (1.7-9.3); Neutrophils # 3.6 K/mm3 (1.8-7.8); Neutrophils % 59.8 % (37.0-80.0); Platelet Count 248 K/mm3 (142-424); Red Blood Count 3.73 M/mm3 (4.20-5.40); Red Cell Distribution Width 12.8 % (11.5-17.5)
[2024-09-15 15:21] LABS: Albumin Level 4.8 g/dl (3.5-5.0); Chloride 99 mmol/L (98-107); Sodium 136 mmol/L (136-145)
[2024-09-15 15:22] LABS: Potassium 3.8 mmoL/L (3.5-5.1)
[2024-09-15 15:24] LABS: Alanine Aminotransferase 35 U/L (12-78); Albumin/Globulin Ratio 1.5 (1.1-1.8); Alkaline Phosphatase 65 U/L (38-126); Anion Gap 12.8 mEq/L (5-15); Aspartate Amino Transferase 52 U/L (14-36); Bilirubin,Total 1.1 mg/dl (0.2-1.3); Blood Urea Nitrogen 18 mg/dl (7-17); Calcium 8.9 mg/dl (8.4-10.2); Carbon Dioxide 28 mmol/L (22.0-30.0); Creatinine Clearance Estimated 111 mL/min (50-200); Estimated Glomerular Filt Rate 113 ml/min (>60); GFR (African American) 137 ML/MIN (>60); Globulin 3.2 g/dL (1.3-3.2); Glucose 76 mg/dl (74-100); Lipase 44 U/L (23-300)
[2024-09-15] MEDS: 0.9 % SODIUM CHLORIDE 50 ML VIAL 100 ML IV (15:52)
[2024-09-15] MEDS: IOPAMIDOL-370 (76%);100ML BOTTLE 160 ML IV (15:52)
[2024-09-15] MEDS: SODIUM CHLORIDE 0.9% 10ML SYR (RAD ONLY) 10 ML IV (15:52)
--- NOTE | 2024-09-15 16:11 | PC.NURSE ---
ROUNDED ON THE PT. THE PT VOICES THAT SHE DOES NOT NEED ANYTHING AT THIS TIME. CALL LIGHT IS WITHIN REACH OF THE PT.
--- NOTE | 2024-09-15 16:22 | PC.NURSE ---
I rounded on the pt and asked if I could get her anything. I took her a pepsi and turkey sandwhich with permission from . no other needs voiced. no new complaints. call clement in reach.
[2024-09-15 16:33] LABS: HCG Qualitative, Serum Negative (Negative)
--- NOTE | 2024-09-15 16:54 | PC.NURSE ---
Dietary brought the pt a dinner tray.
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
[2024-09-15 17:26] VITALS: BP 105/81; PULSE 60; RESP 14; TEMP 36.7
[2024-09-15 19:15] LABS: HIV Combo NEGATIVE (Negative)
[2024-09-15 19:23] LABS: Hepatitis C Ab Qual. W/ RFX REACTIVE (Negative)
== END 2024-09-15 17:27 | disposition home or self-care (01) ==
PROVIDERS: Emergency Medicine; Emergency Provider Emergency Medicine; PCP Social Worker
DX: S02.401A Maxillary fracture, unspecified side, initial encounter for closed fracture (principal); S02.2XXA Fracture of nasal bones, initial encounter for closed fracture; G50.1 Atypical facial pain; R07.81 Pleurodynia; R04.2 Hemoptysis; M54.9 Dorsalgia, unspecified; R10.10 Upper abdominal pain, unspecified; Z87.891 Personal history of nicotine dependence; Y09 Assault by unspecified means
CPT/HCPCS: 70450; 70486; 70496; 70498; 71275; 72125; 72128; 72131; 74174; 80053; 83690; 84703; 85025; 86803; 87389; 87522; 96374; 99285; J1885; Q9967

== ENCOUNTER 2025-01-12 19:13 | Emergency (ER) | payer SELFPAY ==
--- OUTSIDE RECORDS SUMMARY | 2024-12-02 15:30 | XMS_ITS | Encounter Summary ---
Author Organization Healthcare Address [address] [place] [address] Care Team Providers Care Crystal Flat Grinder Name Role Phone Pcp, No Primary Care Provider Unavailabl e Reason for Visit * Reason Comments Labs Here for labs. Encounter Details Date Type Department Care Team (Late st Contact Info) Description 12/02/2024 3:30 PM EDT Clinical Support Obstetrics & Gynecology [address] [place] [address] Missed menses Social History Tobacco Use Types Packs/Day Years Used Date Smoking Tobacco: Never Smokeless Tobacco: Never Alcohol Use Standard Drinks/Week Comments Yes 0 (1 standard drink = 0.6 oz pur e alcohol) PHQ-2 Answer Date Recorded Patient Health Questionnaire-2 Score 0 12/02/2024 Comments Unknown Sex and Gender Information Value Date Recorded Sex Assigned at Not on file Legal Sex Female 8:06 PM EDT Gender Identity Not on file Sexual Orientation Not on file documented as of this encounter Functional Status * Over the past 2 weeks, how often have you been bothered by any of the following problems? Question Answer Date of Assessment Author Little interest or pleasure in doing things Not at all 12/02/2024 4:14 PM EDT Jessica Amezquita RN Feeling down, depressed, or hopeless Not at all 12/02/2024 4:14 PM EDT Jessica Amezquita RN Patient Health Questionnaire -2 Score 0 12/02/2024 4:14 PM EDT Jessica Amezquita RN * If you checked off any problems on this questionnaire so far, Question Answer Date of Assessment Author How difficult have these problems made it for you to do your work, take care of things at home, or get along with other people? Not difficult at all 12/02/2024 4:14 PM EDT Jessica Amezquita RN documented as of this encounter Miscellaneous Notes * Clinician Note - Marysol Prakash - 12/02/2024 3:30 PM EDT Pt came to the lab for blood work. Pt tolerated well. documented in this encounter Plan of Treatment Not on file documented as of this encounter Procedures Procedure Name Priority Date/Time Associated Diagnosis Comments HCG, QUANTITATIVE Routine 12/02/2024 4:3 5 PM EDT Missed menses documented in this encounter Results * hCG, Total Beta, Quantitative, Plasma (12/02/2024 4:35 PM EDT) hCG, Total Beta <1 <5 mIU/mL 11:07 AM EDT [facility] Blood Venous blood specimen / Unknown Venipuncture / Unknown 12/02/2024 4:35 PM EDT 12/03/2024 10:18 AM EDT Narrative [facility] - 12/03/2024 11:07 AM EDT Patients: Normal Range Premenopausal Female < 5 mIU/mL Male < 3 mIU/mL Postmenopausal Female < 8 mIU/mL The Yduith Elecsys hCG+beta assay is standardized to the 4th IS for Chorionic Gonadotropin. The combination of the specific monoclonal antibodies used in this assay recognizes the holo-hormone, nicked forms of hCG, the Beta-core Fragment and the free beta-subunit. Elevated hCG concentrations not associated with are found in patients with gestational trophoblastic disease and choriocarcinoma as well as germ cell, ovarian, bladder, pancreas, stomach, lung and liver tumors. Performed by the Yudith electrochemiluminescent immunoassay which is traceable to the 4th International Standard for hCG (NIBSC 75/589). Results obtained with different test methods or kits cannot be used interchangeably. us Zoe Werner APRN, DNP LAB BLOOD ORDERABLES Fi nal Result [facility] [address] [place] [address] documented in this encounter Visit Diagnoses Diagnosis Missed menses documented in this encounter Additional Health Concerns Assessment Noted Time A fall risk assessment has been complete d for the patient 12/02/2024 4:14 PM EDT A Body Mass Index follow-up plan has been documented for the patient 12/02/2024 5:05 PM EDT documented as of this encounter Care Teams Crystal Flat Grinder Relationship Specialty Start Date End Date Pcp, No [address] [place] [address] PCP - General Family Medicine 08/24/21 documented as of this encounter
--- OUTSIDE RECORDS SUMMARY | 2024-12-02 15:45 | XMS_ITS | Encounter Summary ---
Author Organization Healthcare Address [address] [place] [address] Care Team Providers Care Mobile Ui Designer Name Role Phone Pcp, No Primary Care Provider Unavailabl e Reason for Visit * Reason Comments Possible Pt reports period is 2 days late, 2 positive and 1 negative home upt.+ cramping, breast tenderness, vomiting- no contraception use, no bleeding Encounter Details Date Type Department Care Team (Late st Contact Info) Description 12/02/2024 3:45 PM EDT Office Visit Obstetrics & Gynecology [address] [place] [address] Zoe Werner, TYPE BAR AND SEGMENT ASSEMBLER, DNP [address] [place] [address] Missed menses (Primary Dx); Urinary urgency; Family planning education, guidance, and counseling; Elevated blood pressure reading in office without diagnosis of hypertension Social History Tobacco Use Types Packs/Day Years [...] on file documented as of this encounter Last Filed Vital Signs Vital Sign Reading Time Taken Comments Blood Pressure 143/94 12/02/2024 4:25 PM EDT Pulse 78 12/02/2024 4:12 PM EDT Temperature - - Respiratory Rate - - Oxygen Saturation 98% 12/02/2024 4:12 PM EDT Inhaled Oxygen Concentration - - Weight 65.5 kg (144 lb 6.4 oz) 12/02/2024 4:12 P M EDT Height - - Body Mass Index 24.79 09/19/2023 1:12 PM EST documented in this encounter Functional Status * Over the [...] as of this encounter Miscellaneous Notes * Progress Notes - Zoe Werner, TYPE BAR AND SEGMENT ASSEMBLER, DNP - 12/02/2024 3:45 PM EDT Gynecology Progress Note Subjective Shane Samuels is a 33 y.o. (2svd, 3csec), , sexually active, here for confirmation of . Here today for confirmation of . She is currently 2 days late on menses. She is confident in dating of LMP. She has had 2 positive tests at home and 1 negative test. She has had intermittentlower abdominal cramping, breast tenderness, increased urinary urgency. Denies urinary burning. States she was treated for recent UTI and questions if fully treated vs related. Denies bleeding. States this was not a planned . Is on a vitamin, but not that has folic acid supplementation. She is currently on Methadone and sees prescribing provider M-. States she has not made this provider aware regarding potential yet. No further questions or concerns today. LMP: 11/02/24 Pap: 08/09/22 ASCUS w/neg HPV Family hx: sister-ovarian cancer Review of Systems Constitutional: Negative. HENT: Negative. Eyes: Negative. Respiratory: Negative. Cardiovascular: Negative. Endocrine: Negative. Genitourinary: Positive for menstrual problem and urgency. Breast tenderness; abdominal cramping Musculoskeletal: Negative. Skin: Negative. Allergic/Immunologic: Negative. Neurological: Negative. Hematological: Negative. Psychiatric/Behavioral: Negative. Objective Visit Vitals BP (!) 143/94 Pulse 78 Physical Exam Constitutional: Appearance: Normal appearance. HENT: Head: Normocephalic. Pulmonary: Effort: Pulmonary effort is normal. Neurological: Mental Status: She is alert and oriented to person, place, and time. Psychiatric: Mood and Affect: Mood normal. Behavior: Behavior normal. Vitals and nursing note reviewed. Exam conducted with a hourly sign language interpreter present. Labs: UA negative UPT negative Assessment/Plan Assessment & Plan Missed menses Orders: hCG, Total Beta, Quantitative, Plasma; Future POCT Urine hCG, Total Beta, Quantitative, Plasma; Future Urinary urgency Orders: POCT Urinalysis Dipstick Urine Culture Family planning education, guidance, and counseling Elevated blood pressure reading in office without diagnosis of hypertension -Will follow hCG and trend appropriately. Discussed likely need to repeat again 12/06 for comparisonif hCG positive. Enc to start daily PNV w/400mcg folic acid supplementation. -Due to recent UTI and potential , will confirm with urinary culture but discussed that urgency can be 1st trimester sign. -Elevated BP in office today. Enc to keep log for two weeks and will report readings back to clinic. -Answered all patient questions. Agreeable to POC. -RTC prn Time Spent: I personally spent a total of 25 minutes on this encounter. This time includes face to face with patient, counseling and discussion and/or coordination of care. documented in this encounter Plan of Treatment Scheduled Orders Name Type Priority Associated Diagnoses Orde r Schedule hCG, Total Beta, Quantitative, Plasma Lab Routine Missed menses Expected: 12/06/2024 (Approximate), Expires: 06/04/2026 documented as of this encounter Procedures Procedure Name Priority Date/Time Associated Diagnosis Comments POCT , URINE Routine 12/02/2024 4:13 PM EDT Missed menses POCT URINALYSIS DIPSTICK Routine 12/02/2024 4:11 PM EDT Urinary urgency URINE CULTURE Routine 12/02/2024 4:11 PM EDT Urinary urgency documented in this encounter Results * hCG, Total Beta, Quantitative, Plasma (12/02/2024 4:35 PM EDT) hCG, Total Beta <1 <5 mIU/mL 11:07 AM EDT [facility] Blood Venous blood specimen / Unknown Venipuncture / Unknown 12/02/2024 4:35 PM EDT 12/03/2024 10:18 AM EDT Narrative [facility] - 12/03/2024 11:07 AM EDT Patients: Normal Range Premenopausal Female < 5 mIU/mL Male < 3 mIU/mL Postmenopausal Female < 8 mIU/mL The Yudith Elecsys hCG+beta assay is standardized to the [...] be used interchangeably. us Zoe Werner APRN, MANUEL LAB BLOOD ORDERABLES Fi nal Result [facility] [address] [place] [address] * POCT Urine (12/02/2024 4:13 PM EDT) Urine - Point of Care Negative - women after 7 weeks gestation and dilute urine (specific gravity <1.010) may have false negative results. Plasma HCG testing is recommended. Test performed at Point of Care. Negative - women after 7 weeks gestation and dilute urine (specific gravity <1.010) may have false negative results. Plasma HCG testing is recommended. Test performed at Point of Care. INTERNAL QC OK, PREG URINE yes KIT LOT NUMBER, PREG URINE [id number] KIT EXPIRATION DATE, PREG URINE 12/02/25 Urine Urine specimen obtained by clean catch procedure / Unknown 12/02/2024 4:13 PM EDT Zoe Werner APRN, DNP POINT OF CARE TEST ENTE R/EDIT ORDERABLES Final Result * (ABNORMAL) Urine Culture (12/02/2024 4:11 PM EDT) Culture <10,000 CFU/mL Mixed urogenital, fecal, or skin mary present. 12/05/2024 12:46 PM EDT [facility] Culture Streptococcus agalactiae (Beta Hemolytic Streptococcus, Group B)(A) 12/05/2024 12:46 PM EDT [facility] Comment: This isolate has been identified using the FDA Approved [employer] [place] System Note: This organism is included in the Mixed Mary as listed above. Note: If this patient is and has a penicillin allergy please contact Microbiology [phone] to perform antibiotic susceptibility testing of Clindamycin. This isolate will be saved for one month. The organism value for this result has been updated. These results have been appended to the previously preliminary verified report. Urine Urine specimen obtained by clean catch procedure / Unknown Non-blood Collection / Unknown 12/02/2024 4:11 PM EDT 12/02/2024 6:58 PM EDT Zoe Werner APRN, DNP LAB MICROBIOLOGY - GENE RAL ORDERABLES Final Result [facility] [address] [place] [address] * (ABNORMAL) POCT Urinalysis Dipstick (12/02/2024 4:11 PM EDT) POCT Urine Color Yellow POCT Urine Clarity Clear POCT Glucose Urine Negative Negative mg/dL POCT Bilirubin, Urine Negative Negative POCT Ketones, Urine Negative Negative mg/dL POCT Specific [place], Urine >=1.030 POCT Blood, Urine Negative Negative POCT pH, Urine 6.0 5.0 to 8.0 POCT Protein, Urine Negative Negative mg/dL POCT Urobilinogen, Urine 2(A) 0.2, 1 E.U./dL POCT Nitrite, Urine Negative Negative POCT Leukocyte Esterase, Urine Negative Negative Test Strip Lot Number [id number] Test Strip Lot Expiration 05/27/25 Urine Urine specimen obtained by clean catch procedure / Unknown 12/02/2024 4:11 PM EDT Zoe Werner APRN, DNP POINT OF CARE TEST ENTE R/EDIT ORDERABLES Final Result documented in this encounter Visit Diagnoses Diagnosis Missed menses- Primary Urinary urgency Urgency of urination Family planning education, guidance, and counseling Other general counseling and advice for contraceptive management Elevated blood pressure reading in office without diagnosis of hypertension documented in this encounter Additional Health Concerns Assessment Noted Time A fall risk assessment has been complete d for the patient 12/02/2024 4:14 PM EDT A Body Mass Index follow-up plan has been documented for the patient 12/02/2024 5:05 PM EDT documented as of this encounter Care Teams Mobile Ui Designer Relationship Specialty Start Date End Date Pcp, [place] [address] PCP - General Family Medicine 08/24/21 documented as of this encounter
[2025-01-12 19:17] VITALS: BP 105/67; PULSE 61; RESP 18; TEMP 37; O2SAT 100; BMI 22.6
--- OUTSIDE RECORDS SUMMARY | 2025-01-12 19:30 | XMS_ITS | Encounter Summary ---
Author Organization Healthcare Address [address] [place] [address] Care Team Providers Care Counselling Psychologist Name Role Phone Pcp, No Primary Care Provider Unavailabl e Reason for Visit * Reason Comments Med Refill Encounter Details Date Type Department Care Team (Late st Contact Info) Description 04/11/2021 Refill [facility] [address] [place] [address] Juliette Walton MD [address] [place] [address] Social History Tobacco Use Types Packs/Day Years Used Date Smoking Tobacco: Never Alcohol Use Standard Drinks/Week Comments Yes 0 (1 standard drink = 0.6 oz pur e alcohol) Comments Unknown Sex and Gender Information Value Date Recorded Sex Assigned at Not on file Legal Sex Female 8:06 PM EDT Gender Identity Not on file Sexual Orientation Not on file documented as of this encounter Plan of Treatment Not on file documented as of this encounter Visit Diagnoses Not on filedocumented in this encounter Care Teams Counselling Psychologist Relationship Specialty Start Date End Date Pcp, No [address] [place] [address] PCP - General Family Medicine 08/24/21 documented as of this encounter
--- OUTSIDE RECORDS SUMMARY | 2025-01-12 19:30 | XMS_ITS | Encounter Summary ---
Author Organization Healthcare Address [address] [place] [address] Care Team Providers Care Cognos Report Developer Name Role Phone Pcp, No Primary Care Provider Unavailabl e Encounter Details Date Type Department Care Team (Late st Contact Info) Description 12/03/2024 Results Follow-Up Obstetrics & Gynecology [address] [place] [address] Sharonda Soto MD [address] [place] [address] Social History Tobacco Use Types Packs/Day Years [...] Diagnoses Not on filedocumented in this encounter Additional Health Concerns Assessment Noted Time A fall risk assessment has been complete d for the patient 12/02/2024 4:14 PM EDT A Body Mass Index follow-up plan has been documented for the patient 12/02/2024 5:05 PM EDT documented as of this encounter Care Teams Cognos Report Developer Relationship Specialty Start Date End Date Pcp, Mariajose [address] [place] [address] PCP - General Family Medicine 08/24/21 documented as of this encounter
--- OUTSIDE RECORDS SUMMARY | 2025-01-12 19:30 | XMS_ITS | Clinical Summary ---
Author Organization [facility] Address [address] [id number] Phone Care Team Providers Care Automotive Starter Repairer Name Role Phone Kristie Raymundo MD Primary Care Physician [ ] Conditions or Problems Problem Name Problem Code Onset Date Status Entry Date Provider Comment Standard Description Annotate 29 weeks gestation of 73415954 (SNOMED CT) 11/06 Inactive 11/09 Kristie Raymundo MD Gestation period, 29 weeks Body mass index (BMI) 26.0-26.9; adult Z68.26 (ICD-10-CM ) 11/06 Active 11/06 Kristie Raymundo MD Body mass index [BMI] 26.0-26.9, adult Body mass index (BMI) 25.0-25.9; adult Z68.25 (ICD-10-CM ) 10/03 Correction 10/03 Kristie Raymundo MD Body mass index [BMI] 25.0-25.9, adult Body mass index (BMI) 25.0-25.9; adult Z68.25 (ICD-10-CM ) 10/03 Removed 10/03 Kristie Raymundo MD Body mass index [BMI] 25.0-25.9, adult 24 weeks gestation of 498293693 (SNOMED CT) 10/03 Inactive 10/03 Kristie Raymundo MD Gestation period, 24 weeks UTI PREG- ASYMPTOMATI C O23.90 (ICD-10-CM ) 09/06 Active 09/06 Kristie Raymundo MD Unspecified genitourinary tract infection in , unspecified trimester 19 weeks gestation of 05975232 (SNOMED CT) 09/03 Inactive 09/06 Kristie Raymundo MD Gestation period, 19 weeks HX OF PRE-TERM LABOR Z87.51 (ICD-10-CM ) 09/03 Inactive 09/03 Kristie Raymundo MD Personal history of pre-term labor PREV C/S DELIV DELIV W/WO MENTION ANTPRTM COND Z98.89 (ICD-10-CM ) 09/03 Active 09/03 Kristie Raymundo MD Other specified postprocedural states Encounter for anatomic survey 382060211 (SNOMED CT) 09/03 Inactive 09/03 Kristie Raymundo MD anatomy study Seizure disorder, generalized 818186608 (SNOMED CT) 09/03 Active 09/03 Kristie Raymundo MD Seizure disorder Drug addiction 907818717 (SNOMED CT) 09/03 Active 09/03 Kristie Raymundo MD Drug addict Xanax and Methadone Supervision high risk , unspecified trimester 779935743 (SNOMED CT) 09/03 Inactive 09/03 Kristie Raymundo MD Procedure carried out on subject Medications Medication Instructions Start Date Stop Date Generic Name NDC Provider KEPPRA 1000 MG TABS one every 12 hours 7 LEVETIRACETAM [id number] Kristie Raymundo MD VITAMINS TABLET 7 MV & MIN W/FE-FA TABS [id number] Kristie Raymundo MD Medications Administered No information available. Allergies, Adverse Reactions, Alerts Allergy Name Reaction Description Start Date Severity Statu s Provider ERYTHROMYCIN Critical Active Kristie becker MD Results Date Name Value Unit Range Flag Description Office Visit: [facility] inmate ne w O rm 3 HSV GENITAL no Herpes si mplex virus identified in Genital specimen by Organism specific culture Lab Report: PAIN MANAGEMENT PROFILE 1 W/O CONFIRMATION, URINE, CULTURE, ... TOBRAMYCIN <=1.0 S ug/mL tobramycin serum , random Office Visit: [facility] inmate-pn fu rm 4 PH URINE 7.5 pH of Urine by Test strip SPEC GR URIN 1.020 Specific gravity of Urine by Test strip Office Visit: pn f/u and 2 h r gtt [facility] rm #4 GLUCOSE, URN negative Glucose [Mass/volume] in Urine by Test strip BILIRUBIN UR negative Bilirub in.total [Presence] in Urine by Test strip KETONES URN negative Ketones [Mass/volume] in Urine by Test strip BLOOD UR DIP negative blood i n urine (hemoglobin) by dipstick PROTEIN, URN negative protein , urine, semiquantitative (dipstick) UROBILINOGEN negative Urobili nogen [Presence] in Urine by Test strip NITRITE URN negative Nitrite [Presence] in Urine by Test strip WBC DIPSTK U negative Leukocy te esterase [Presence] in Urine by Test strip Lab Report: GLUCOSE TOLERANC E TEST, GEST, 3 SPEC (75G), CBC (INCLUDES DI ... BASO % MANU 0.3 % N basophils as percent of blood leukocytes, manual count EOS % MANU 0.3 % N eosinophil s as percent of blood leukocytes, manual count MONOCYTE % 4.3 % N Monocytes/ 100 leukocytes in Blood by Automated count LYMPH% P BLD 30.0 % N lymphocy aquiles as percent of blood leukocytes PMN % 65.1 % N Neutrophils/1 00 leukocytes in Blood by Automated count ABS BASOS 22 {Cells}/u L 0-200 N Basophils [#/volume] in Blood ABS EOS 22 {Cells}/u L 15-500 N Eosinophils [#/volume] in Blood ABS MONOS 314 {Cells}/u L 200-950 N Monocytes [#/volume] in Blood ABSLYMPHCT 2190 {Cells}/u L 850-3900 N Lymphocytes [#/volume] in Blood ABS NEUTROPH 4752 CELLS/UL 10*3/uL 5086-5297 N Neutrophils [#/volume] in Blood MPV 7.9 fL 7.5-12.5 N Platelet bobbi n volume [Entitic volume] in Blood by Lauren PLATELETK/UL 227 THOUSAND/UL 10*3/uL 140-400 N platelet count RDW 13.2 % 11.0-15.0 N Erythrocyte distribution width [Ratio] by Automated count OL-MCHC 32.9 g/dL 32.0-36.0 N mean corpus cular hemoglobin concentration, rbc MCH 32.8 pg 27.0-33.0 N MCH [Entiti c mass] by Automated count MCV 99.5 fL 80.0-100.0 N MCV [Entit ic volume] by Automated count HCT 39.4 % 35.0-45.0 N Hematocrit [Volume Fraction] of Blood by Automated count HGB 13.0 g/dL 11.7-15.5 N Hemoglobin [Mass/volume] in Blood RBC M/UL 3.96 MILLION/UL 10*6/uL 3.80-5.10 N red blood count WBC CT BLOOD 7.3 10*3/uL 3.8-10.8 N leukocy te count, blood Plan of Care Type Date Detail Pending order Urine Dip Manual 08988 Pending order CBC with diff Pending order RPR w/ reflex to titer & confirmation Pending order GTT 2 Hour Pending order RPR w/ reflex to titer & confirmation Pending Order exclud ed from report: Pending order GTT 2 Hour Pending Order exclud ed from report: Pending order CBC with diff Pending Order exclud ed from report: Pending order Urine Dip Auto 8 1003 Pending order Ultrasound Pending order Urine Dip Auto 8 1003 Pending order Urine Drug Scree n w/o Confirmation Pending order HIV 1/2 Antigen & Antibodies -consent required Pending order ThinPrep Pap w r eflex HR HPV/GC/Chlamydia mRNA E6/E7 Pending order Urine Culture Pending order Cystic Fibrosis Screen Patient education Patient Educat ion Given Patient education Patient Educat ion Given Patient education Patient Educat ion Given Procedures Code Procedure Name Date Entry Date [facility]# [id number] GTT 3 Specimen 395 [facility] Test # Urine Culture [id number] Medication Reconciliation CPT-3074F Most recent systolic blood pressure <130 mm Hg CPT-3078F Most recent diastoli c blood pressure <80 mm Hg SCT-[id number] SNOMED-CT: 760473092 419825 Current Medications Documented 6399 [facility] Test # CBC with Differential 2 50824 [facility] Test # RPR w/ reflex to titer & confirmati on CPT-46147 Urine Dip Manual 97019 11/06 46733 [facility] Test # RPR w/ reflex to titer & confirmati on [facility]# [id number] GTT 2 Hour [facility] 6399 CBC with diff SCT-[id number] Medication Reconciliation SCT-[id number] SNOMED-CT: 499614099 327521 Current Medications Documented CPT-96001 Urine Dip Auto 58915 CPT-3074F Most recent systolic blood pressure <130 mm Hg CPT-3078F Most recent diastoli c blood pressure <80 mm Hg OB US GEN Ultrasound SCT-[id number] SNOMED-CT: 043693738 Smoking Cessation Counseling SCT-[id number] SNOMED-CT: 104197630 689889 Current Medications Documented CPT-57934 Urine Dip Auto 81080 02317 [facility] # HIV 1/2 Antigen & An tibodies -consent required CPT-53315 Cystic Fibrosis Screen 09/03 11252 [facility] Test # Urine Drug Screen w/o Confirmation 395 [facility] Test # Urine Culture [facility]# [id number] ThinPrep Pap w refle x HR HPV/GC/Chlamydia mRNA E6/E7 Vital Signs Date Name Value Unit Description BMI (Body Mass Index) 26.25 kg/m2 Bod y Mass Index (Ratio) BP Diastolic 64 mm[Hg] blood pressu re, diastolic BP Systolic 99 mm[Hg] blood pressur e, systolic BSA (Body Surface Area) 1.77 b veronique surface area Heart Rate 60 /min pulse rate Height 64 [in_us] height E&M Height 162.56 cm height in cent imeters E&M Weight Measured 69.27 kg weight in kilograms E&M Weight Measured 152.4 [lb_av] weight E& M Weight Measured 152.4 [lb_av] weight E& M Immunizations No information available. Advance Directives No information available.
--- OUTSIDE RECORDS SUMMARY | 2025-01-12 19:30 | XMS_ITS | Encounter Summary ---
Author Organization Healthcare Address [address] [place] [address] Care Team Providers Care Founder Name Role Phone Pcp, No Primary Care Provider Unavailabl e Reason for Referral * Consultation (Routine) - Authorized Specialty Diagnoses / Procedures Referred By Rian t Referred To Contact Neurology Diagnoses Intractable seizure disorder (CMS/HCC) Abe Gutierrez MD [address] [facility] [address] [place] [address] Phone: tel: fax: Татьяна Douglas PA [address] [place] [address] Phone: tel: fax: Referral ID Status Reason Start Date Expiration Date Visits Requested Visits Authorized [id number] Authorized Specialty Services Required 07/29/2024 01/28/2026 1 1 Encounter Details Date Type Department Care Team (Late st Contact Info) Description 07/29/2024 Community [facility] [address] [place] [address] Abe Gutierrez MD [address] [facility] [address] [place], [place] [id number] Intractable seizure disorder (CMS/HCC) (Primary Dx) Social History Tobacco Use Types Packs/Day Years Used Date Smoking Tobacco: Never Smokeless Tobacco: Never Alcohol Use Standard Drinks/Week Comments Yes 0 (1 standard drink = 0.6 oz pur e alcohol) PHQ-2 Answer Date Recorded Patient Health Questionnaire-2 Score 0 09/19/2023 Comments No Sex and Gender Information Value Date Recorded Sex Assigned at Not on file Legal Sex Female 8:06 PM EDT Gender Identity Not on file Sexual Orientation Not on file documented as of this encounter Plan of Treatment Scheduled Referrals Name Type Priority Associated Diagnoses Order Schedule Ambulatory referral to Neurology Outpatient Referral Routine Intractable seizure disorder (CMS/HCC) Expected: 07/29/2024 (Approximate), Expires: 01/26/2026 documented as of this encounter Visit Diagnoses Diagnosis Intractable seizure disorder (CMS/HCC)- Primary documented in this encounter Additional Health Concerns Assessment Noted Time A fall risk assessment has been complete d for the patient 09/19/2023 1:22 PM EST A Body Mass Index follow-up plan has been documented for the patient 09/19/2023 1:46 PM EST documented as of this encounter Care Teams Founder Relationship Specialty Start Date [place] [address] PCP - General Family Medicine 08/24/21 documented as of this encounter
--- OUTSIDE RECORDS SUMMARY | 2025-01-12 19:30 | XMS_ITS | Encounter Summary ---
Author Organization Healthcare Address [address] [place] [id number] Care Team Providers Care Roving Court Reporter Name Role Phone Pcp, No Primary Care Provider Unavailabl e Encounter Details Date Type Department Care Team (Late st Contact Info) Description 09/24/2023 Outside Procedure External Location [address] [place] [address] Sybil Arguelles APRN, DNP [address] [place] [address] Social History Tobacco Use Types [...] Procedure Name Priority Date/Time Associated Diagnosis Comments US BREAST LIMITED LEFT 09/24/2023 2:08 PM EST documented in this encounter Results * US Breast Limited Left (09/24/2023 2:08 PM EST) Anatomical Region Laterality Modality Breast Left Ultrasound 09/24/2023 2:08 PM EST Narrative 09/24/2023 2:58 PM EST [facility] [address] [place] [address] Name: SHANE SAMUELS Exam Date: 09/24/2023 : 1990 Age 33 Gender: F Physician: SYBIL ARGUELLES Facility: [facility] Facility HSV: Outpatient Exam: US BREAST LTD LT LEFT BREAST ULTRASOUND, limited HISTORY: Palpable abnormality in the lower outer left breast, inverted nipple FINDINGS: No cystic or solid mass is present. Echotexture is unremarkable. Consultation with general surgery recommended for any palpable abnormality, despite the lack of sonographic findings. IMPRESSION: No discrete mass BI-RADS 2: Benign RECOMMENDATION: Annual mammography at age 40 or as needed. Dictated By: LETTY MAGALLANES Transcribed By: Letty Magallanes Transcribed On: 09/24/2023 2:39 PM Electronically signed by: LETTY MAGALLANES 09/24/2023 Thank you for referring [facility] to [facility]. Legally authenticated by POPE LETTY Watkins 2023-09-24 14:39:19 Procedure Note Provider, [facility] - 09/24/2023 [place] [address] Name: SHANE SAMUELS Exam Date: 09/24/2023 : 1990 Age 33 Gender: F Physician: SYBIL ARGUELLES Facility: [facility] Facility HSV: Outpatient Exam: US BREAST LTD LT LEFT BREAST ULTRASOUND, limited HISTORY: Palpable abnormality in the lower outer left breast, invertednipple FINDINGS: No cystic or solid mass is present. Echotexture isunremarkable. Consultation with general surgery recommended for any palpableabnormality, despite the lack of sonographic findings. IMPRESSION: No discrete mass BI-RADS 2: Benign RECOMMENDATION: Annual mammography at age 40 or as needed. Dictated By: LETTY MAGALLANES Transcribed By: Letty Magallanes Transcribed On: 09/24/2023 2:39 PM Electronically signed by: LETTY MAGALLANES 09/24/2023 Thank you for referring SHANE SAMUELS to [facility]. Legally authenticated by POPE LETTY Watkins 2023-09-24 14:39:19 Sybil Arguelles APRN, MANU[facility] IMG BI PROCEDURES Final Result documented in this encounter Visit Diagnoses Not on filedocumented in this encounter Additional Health Concerns Assessment Noted Time A fall risk assessment has been complete d for the patient 09/19/2023 1:22 PM EST A Body Mass Index follow-up plan has been documented for the patient 09/19/2023 1:46 PM EST documented as of this encounter Care Teams Roving Court Reporter Relationship Specialty Start Date End Date Pcp, No [address] [place] [address] PCP - General Family Medicine 08/24/21 documented as of this encounter
--- OUTSIDE RECORDS SUMMARY | 2025-01-12 19:30 | XMS_ITS | Clinical Summary ---
Author Organization [facility] Address [address] [place] [address] Phone Care Team Providers Care Senior Field Service Engineer Name Role Phone Unavailable Primary Care Provider Unavailabl e Allergies Active Allergy Reactions Criticality Noted Date Comments Erythromycin 08/18/2016 Medications methadone 5 mg/5 mL Oral Solution Take 45 mL by mouth daily. 7 Active Additional Information Patient taking differently: 30 mgOral DAILY, Reported on 11/08/2016 ferrous sulfate 325 mg (65 mg iron) Oral Tablet Take 1 Tab by mouth 2 times daily (with meals). 7 Active PNV95/IRON FUM/FOLIC ACID ( ORAL) Take by mouth. Active Active Problems Problem Noted Date Diagnosed Date High risk due to history of la bor 08/26/2016 History of classical section 08/26/2016 Insufficient care 08/26/2016 History of hemorr domenico, currently , unspecified trimester 08/26/2016 Methadone maintenance treatment complicating pre gnancy 08/26/2016 Hypokalemia 08/25/2016 Altered mental status 08/23/2016 Seizure 08/23/2016 Fever 08/23/2016 Benzodiazepine withdrawal 08/23/2016 IVDU (intravenous drug user) 08/23/2016 08/23/2016 Elevated LFTs 08/23/2016 Rhabdomyolysis 08/23/2016 Seizure-like activity Somnolence Encephalopathy acute CSF pleocytosis Elevated CPK 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 History of blood transfusion 2014 Hepatitis C antibody test positive Intravenous drug abuse (HCC) Benzodiazepine abuse (HCC) Migraine Rhabdomyolysis 08/23/2016 Social History Tobacco Use Types Packs/Day Years Used Date Smoking Tobacco: Former Cigarettes Q uit: 08/23/2016 Smokeless Tobacco: Former Quit: 08/23/2016 Alcohol Use Standard Drinks/Week Comments Yes 0 (1 standard drink = 0.6 oz pur e alcohol) Sexually Active Control Partners Comments Yes Comments No Sex and Gender Information Value Date Recorded Sex Assigned at Not on file Legal Sex Female 3:05 PM EST Gender Identity Not on file Sexual Orientation Not on file Obstetrics History Para Term AB IAB SAB Ectopic Multiple Livin g Live Births 9 5 2 3 3 3 5 5 Date Outcome GA Total Labor Labor/2nd/3rd Weight Sex Type Anes PTL Brittany A1 A5 Name Clin SAB SAB 2006 Term F Vag-S pont N Livin g Karlie 2009 F Vag-S pont Y Livin g Rg 2010 31w 3d 3 lb (1.361 kg) M CS-Cl assic al Y Livin g Dr Marcelle conway MD Complications:Prolonged rupt ure of membranes,Breech presentation Delivery Location:[place], [place] 2014 Term 40w 2d F Y Livin g [place] Complications: hem orrhage Delivery Location:Delivered at home-Taken to [facility] 2015 36w 0d 4 lb 11 oz (2.126 kg) M CS-LT ranv Spinal Y Livin g Jason Dr Nirali Shaffer MD Delivery Location:[place], [place] 6 SAB Last Filed Vital Signs Vital Sign Reading Time Taken Comments Blood Pressure 112/63 11/08/2016 4:13 PM EDT Pulse 61 11/08/2016 4:13 PM EDT Temperature 36.8 C (98.2 F) 11/08/2016 4:13 PM EDT Respiratory Rate 18 11/08/2016 4:13 PM EDT Oxygen Saturation 97% 08/29/2016 9:09 AM EST Inhaled Oxygen Concentration - - Weight 67.6 kg (149 lb) 11/08/2016 4:13 PM EDT Height 162.6 cm (5' 4 ) 11/08/2016 4:13 PM EDT Body Mass Index 25.58 11/08/2016 4:13 PM EDT Plan of Treatment Health Maintenance Due Date Last Done Comments Annual Wellness Exam 1991 Hepatitis B Vaccine (1 of 3 - 19+ 3-dose series) 2007 Cervical Cancer Screening 2009 Pap Smear 2009 HPV/Pap Cotest 2018 COVID-19 Vaccine (2023-2 5 season) 2024 Influenza Vaccine (Season Ended) 2025 08/28/19 17 DTaP/TDaP/Td (2 - Td or Tdap) 08/28/2026 08/28/2016 Meningococcal B Vaccine Aged Out No l onger eligible based on patient's age to complete this topic Pneumococcal Vaccine 0-49 Aged Out No longer eligible based on patient's age to complete this topic Insurance [place] [address] [place] * Guarantor: [facility] Account Type Relation to Patient Date of Phone Billing Address Corporate Other ATTN: MEDICAL DEPT [facility] [address] * Guarantor: [facility] Account Type Relation to Patient Date of Phone Billing Address [facility] Corporate Other ATTN: MEDICAL DEPT [address] * [facility] Account Type Relation to Patient Date of Phone Billing Address [employer] [employer] Other ATTN: MEDICAL DEPT [address] Advance Directives For more information, please contact: [phone] * Full Code (Latest Code Status on File) Date Activated Date Inactivated Comments 08/23/2016 3:53 PM 08/29/2016 5:03 PM
--- OUTSIDE RECORDS SUMMARY | 2025-01-12 19:30 | XMS_ITS | Data Portability ---
Author Organization [place] [facility] - [place] & VALERIE Rosa ADMIN Address [address] [place] [address] Assessment Encounter Date Assessment Date Assessment LastModified by Organization Details LastModified Time 09/02/2023 09/02/2023 33-year-old female with: 1) Chronic idiopathic constipation/I BS-C: Complicated by chronic opioid use, but did not have the desired response to methylnaltrexo ne. Continue Linzess 290 mcg p.o. daily and Miralax once daily. -Do to chronic refractory symptoms, will add Motegrity 2 mg p.o. once daily as an adjunctive therapy. -f/u 6 weeks to discuss how she is doing with this, adjust if necessary. -We may also consider referral for pelvic floor therapy is she is amendable. -Colonoscopy 09/2021 was normal but with poor prep [email or web address] Not available 09/02/2023 09:10:27 10/15/2023 10/15/2023 33-year-old female with: 1) Chronic idiopathic constipation/I BS-C: Complicated by chronic opioid use, but did not have the desired response to methylnaltrexo ne. Continue Linzess 290 mcg p.o. daily and Miralax once daily. -Do to chronic refractory symptoms, Motegrity 2 mg p.o. once daily was odered as an adjunctive therapy. This has not yet been approved. I will request that a PA be done for this. -I have also offered the patient a referral for pelvic floor therapy, however she declines. -Colonoscopy 09/2021 was normal but with poor prep [email or web address] Not available 10/15/2023 14:53:41 Plan of Treatment Reminders Order Date Submit Date Provider Last Modified By Organization Details Last Modified Time Details Appointments None recorded. Lab None recorded. Referral None recorded. Procedures None recorded. Surgeries None recorded. Imaging US, renal 2022 023 [email or web address] [facility] (Centralized Scheduling), [address] [place], [address], 3 08:45:38 XR, kidney + ureter + bladder 2022 023 [email or web address] [facility] (Centralized Scheduling), [address] [facility], [place], [address], 3 09:31:53 Medication Orders Motegrity 2 mg tablet 2023 024 [facility] [id number], [address] [place], [address], 4 08:59:53 Linzess 290 mcg capsule 2023 024 [facility] [id number], [address] [place] [address], [address], 4 08:59:50 Macrodanti n 50 mg capsule 2022 023 [facility] [id number], [address] [place] [address], [address], 3 10:02:53 Patient TargetsNo targets recorded. Patient InstructionsNo instructions recorded. Reason for Referral None Reported. Results Created Date Observation Date Name Description Value Unit Range Abnormal Flag Note LastModifiedBy Organization Detail LastModifiedTime 05/22/2005/22/2023 renal ,bila teral [facility] [address] [place] [address] Phone: Fax: Name: SHANE ROMAN Exam Date: 2022 : 989 Age 32 Gender : F Access ion: [id number] Physic marty: SUNG CONNELLY Facili ty: [place] Facili ty HSV: Outpat ient Exam: RENAL, BILATE RAL US RENAL ULTRAS OUND HISTOR Y: Recurr ent UTI FINDIN GS: Kidney s show a normal echo patter n. Right kidney measur es 11.0 cm in length . Left kidney measur es 10.5 cm in length . Size is normal . No mass or cyst is seen. No obstru ctive change s are presen t. CONCLU NORI: Normal renal ultras ound. Dictat ed By: LETTY MAGALLANES Transc ribed By: Letty Magallanes Transc ribed On: 2022 5:06 PM Electr onical ly signed by: LETTY MAGALLANES 2022 Thank you for referr ing LASHAE Lozano SHANE to [facility]. Legall y authen ticate d by POPE LETTY Watkins 2022-07 17:06: 07 CC'ed Logic: Orderi ng Provid er: GODWIN Rose Attend ing Provid er: GODWIN Rose Referr ing Provid er: GODWIN Rose Admitt ing Provid er: GODWIN Rose [email or web address] [facility] - Physical Therapy [address] [place] [address], [place], [address], 05/26/2023 08:34:53 05/23/20 23 05/22/2023 XR, abdom en, 1 view [facility] [address] [place] [address] Phone: Fax: Name: LASHAE SHANE Lozano Exam Date: 2022 : 989 Age 32 Gender : F Access ion: [id number] Physic marty: SUNG CONNELLY Facili ty: [facility] Facili ty HSV: Outpat ient Exam: ABD KUB 1V KUB HISTOR Y: Recurr ing urinar y tract infect ions, consti pation . ABDOME N: Single view of the abdome n demons trates a nonspe cific bowel gas patter n. No abnorm al calcif icatio ns are identi fied. IMPRES NORI: Nonspe cific bowel gas patter n. The films were review ed, interp reted, and dictat ed by Dr. Letty Magallanes Transc ribed by Karlie Oliva se, PA-C. Dictat ed By: LETTY MAGALLANES Transc ribed By: Letty Magallanes Transc ribed On: 2022 7:40 AM Electr onical ly signed by: LETTY MAGALLANES 2022 Thank you for referr ing LISAVASQUEZ SHANE Lozano to [facility] it Hospit [facility]. Legall y authen ticate d by POPE LETTY Watkins 2022- 07:40: 44 CC'ed Logic: Orderi ng Provid er: GODWIN Rose Attend ing Provid er: GODWIN Rose Referr ing Provid er: GODWIN Rose Admitt ing Provid er: GODWIN Rose [email or web address] [facility] - Physical Therapy [address] [place] [address], [address], 05/26/2023 08:34:54 Result Notes Documentation Provider Name and Address Organization Details Recorded Time Xr, Abdomen, 1 View : [place] [address] Name: SHANE SAMUELS Exam Date: 05/22/2023 : 1990 Age 32 Gender: F Physician: JULI CONNELLY Facility: [facility] Facility HSV: Outpatient Exam: ABD KUB 1V KUB HISTORY: Recurring urinary tract infections, constipation. ABDOMEN: Single view of the abdomen demonstrates a nonspecific bowel gas pattern. No abnormal calcifications are identified. IMPRESSION: Nonspecific bowel gas pattern. The films were reviewed, interpreted, and dictated by Dr. Letty Magallanes Transcribed by Karlie Bassett PA-C. Dictated By: LETTY MAGALLANES Transcribed By: Letty Magallanes Transcribed On: 05/23/2023 7:40 AM Electronically signed by: LETTY MAGALLANES 05/23/2023 Thank you for referring SHANE SAMUELS to [facility]. Legally authenticated by POPE LETTY Watkins 2023-05-23 07:40:44 CC'ed Logic: Ordering Provider: GODWIN BUSTOS Attending Provider: GODWIN BUSTOS Referring Provider: GODWIN BUSTOS Admitting Provider: GODWIN Connelly, GLASS INSTALLER, [address] [facility], [place], [address], [facility] - [facility] & [place] 05/26/2023 08:34:54 Problems Name Problem SNOMED Code Status Onset Date Resolution Date Notes Provider Name and Address Organization Details Recorded Time Recurrent urinary tract infection 368356521 Active 2022 Annette walker, [place] - [facility] & [place] 3 09:16:52 Irritable bowel syndrome characterized by constipation 262810706 Active 2023 Gaurav Lopez PA-C [address] [facility], [place], [address] , [place] - [facility] & [place] 4 08:50:55 Chronic idiopathic constipation 89457298 Active 2023 Gaurav Lopez PA-C [address], [place], [address] , [place] - [facility] & [place] 4 08:58:42 Problem Notes None recorded. Medical Equipment None Reported. Allergies Allergen ID Allergen Name Allergen Category Reaction Reaction Severity Criticality Documentation Date Start Date Code Code System Note Provider Name and Address Organization Details Recorded Time 49786 azithromy [facility] n Not available Not available Not available 03/28/2023 17068 RxNorm Annette walker, [place] - [facility] - [place] & [place] 3 09:16:34 Medications Name Sig Start Date Stop Date Status Note LastModified by Organization Details LastModified Time nitrofurant oin macrocrysta l 50 mg capsule Take 1 capsule every day by oral route for 30 days. active Not Available Not Available No t Available gabapentin 600 mg tablet Take 1 tablet 3 times a day by oral route. active Not Available Not Available No t Available fluconazole 150 mg tablet active Not Available Not Available Not Available meloxicam 15 mg tablet active Not Available Not Available Not Available phenazopyri dine 200 mg tablet 04/21 completed Not Available Not Available Not Available clonazepam 1 mg tablet active Not Available Not Available Not Available ketorolac 10 mg tablet 04/21 completed Not Available Not Available Not Available temazepam 30 mg capsule 04/21 completed Not Available Not Available Not Available cephalexin 500 mg capsule TAKE 1 CAPSULE BY MOUTH EVERY 12 HOURS FOR 10 DAYS 04/21 completed Not Available Not Available Not Available dextroamphe tamine-amph etamine 20 mg tablet active Not Available Not Available No t Available lidocaine 5 % topical patch 04/21 completed Not Available Not Available Not Available gabapentin 300 mg capsule 04/21 completed Not Available Not Available Not Available diclofenac sodium 50 mg tablet,rhianna yed release TAKE 1 TABLET BY MOUTH EVERY 8 HOURS NEEDED FOR PAIN 04/21 completed Not Available Not Available Not Available methylpredn isolone 4 mg tablets in a dose pack 04/21 completed Not Available Not Available Not Available ondansetron 4 mg disintegrat ing tablet DISSOLVE 1 TABLET BY MOUTH EVERY 6-8 NEEDED FOR NAUSEA 04/21 completed Not Available Not Available Not Available buprenorphi ne HCl 8 mg sublingual tablet DISSOLVE 3 TABLETS UNDER THE TONGUE DAILY active Not Available Not Available No t Available nitrofurant oin monohydrate /macrocryst als 100 mg capsule 04/21 completed Not Available Not Available Not Available clonazepam 1 mg po TID active Not Available Not Available No t Available diclofenac 1 % topical gel active Not Available Not Available Not Available Lo Loestrin Fe 1 mg-10 mcg (24)/10 mcg (2) tablet active Not Available Not Available Not Available Linzess 290 mcg capsule TAKE 1 CAPSULE BY MOUTH DAILY active Not Available Not Available No t Available Vraylar 1.5 mg capsule 04/21 completed Not Available Not Available Not Available Vraylar 3 mg capsule active Not Available Not Available N ot Available cariprazine 3 mg po daily active Not Available Not Available No t Available Motegrity 2 mg tablet Take 1 tablet every day by oral route for 90 days. 2023 active Not Available Not Available Not Avai lable Vitals Date Recorded Body height Body mass index (BMI) Body weight Body temperature Systolic blood pressure Diastolic blood pressure Provider Name and Address Organization Details Last Updated DateTime 3 162.56 cm 24.9 kg/m2 60286.8 9 g 98.7 [degF] 118 mm[Hg] 74 mm[Hg] [facility] & [place] 3 09:28:42 Date Recorded Body height Body mass index (BMI) Body weight Body temperature Systolic blood pressure Diastolic blood pressure Provider Name and Address Organization Details Last Updated DateTime 3 162.56 cm 24 kg/m2 39879.9 3 g 98 [degF] 120 mm[Hg] 72 mm[Hg] Annette Coello [facility] & [place] 3 13:29:36 Social History None recorded. Functional Status Question Answer Note LastModified by Organizat ion Details LastModified Time Do you use any illicit or recreational drugs? No Information not available 03/28/2023 What is your level of alcohol consumption? None Information not available 03/28/2023 Mental Status None recorded. Family History Relationship Description Onset Age of this Age Resolved Age Notes LastModified by Organization Details LastModified Time Father No current problems or disability [email or web address] Not available 03/28 09:18:38 Mother No current problems or disability [email or web address] Not available 03/28 09:18:38 Medical History Condition Response Depression Y Gynecological HistoryNo gynecological history recorded. Obstetrics History GPAL:G 0 P 0 0 0 0 Past Encounters Encounter ID Performer Location Encounter Start Date Encounter Closed Date Diagnosis/Indication Diagnosis SNOMED-CT Code Diagnosis ICD10 Code Diagnosis Note [id number] Juli Connelly NP, [facility],[address] [place] [address] 04/21/2023 08:53:09 04/21/2023 09:40:02 Recurrent urinary tract infection 772348097 N39.0 No urine providedDi scussed active bowel habits, probiotics , cranberry supplement s Qday-tid, hygeine, voiding prior to and post sex (wash), and wipe front to back.Sched ule Renal US and KUBStart Macrodanti n suppressio n 50mg dailyRTC in 6 weeks for f/u Nocturia 760879674 R35.1 Constipation 35566824 K5 9.00 History of calculus of kidney 947398301 Z87.442 [id number] Juli Connelly NP, [facility] [address] [place] [address],[address] [place] [address] 06/11/2023 13:05:37 06/11/2023 13:50:49 Recurrent urinary tract infection 659334887 N39.0 pt cannot provide UARenal ultrasound and KUB results discussed with patient clinic today.Cont inue Macrodanti n suppressio n 50 mg dailyretur n to clinic in 4 months for follow-up Nocturia 677645313 R35.1 Constipation 05048415 K5 9.00 History of calculus of kidney 924409368 Z87.442 [id number] Gaurav Lopez PA-C [facility] [address] [place] [address] 09/02/2023 08:46:05 09/02/2023 08:56:16 Irritable bowel syndrome characterized by constipation 737504839 K58.1 Chronic id iopathic constipation 80893880 K59.04 [id number] Gaurav Lopez PA-C [facility] [address] [place] [address] 10/15/2023 14:17:46 10/15/2023 14:59:08 Irritable bowel syndrome characterized by constipation 473535039 K58.1 Chronic id iopathic constipation 60242861 K59.04 Health Concerns Section Related Observation LastModified by Organization Detai ls LastModified Time None Recorded Concern Status LastModified by Organization Details LastModified Time None Recorded Advance Directives Directive None Recorded Payers Insurance Date Sequence Insurance Name Policy Number Policy Ames Covered Member ID Ames Member ID Guarantor Name 10/10/2023 1 [place] [id number] Shane Samuels [id number] Shane Samuels 04/21/2023 1 [facility] [place] (MEDICAID HMO) Shane Samuels [id number] Shane Samuels Notes Date Note Type Note Provider Name and Address Organization Details Recorded Time 04/21/2023 text/html 32 yowf presents to the office for evaluation of reoccurring UTIs. Location is LUT. Quality is pressure and painful urination. Severity- varies. Reports that she started experiencing reoccurring UTI's approx 10 years ago, has had 3-4 UTIs this year, last UTI was approx 1 month ago. UTIs have all been treated with antibiotics, sxs typically improve after 2-3 days being on antibiotic ttx. When experiences UTI has dysuria, urinary urgency/frequency, low back pain, and occ gross hematuria. Has not had any labs or diagnostic tests performed. Currently, states f/c stream occ weak. Nocturia 1-2. Bowels has chronic constipation has seen Dr Taylor in the past and was on Linzess; however states she has not seen him in over 1 year so has not been taking the Linzess. Currently denies any dysuria, gross hematuria, flank pain, fevers, chills, nausea, or vomiting. Denies any urinary incontinence or DM. On Loestrin, doesnt have any menstrual cycles. UTIs are not r/t sexual intercourse. History of kidney stones at age 16, passed on her own. States is taking probiotics and AZO cranberry extract pills. Juli Connelly, GLASS INSTALLER, [address] [facility], [place], [address], [facility] - [place] - [place] & [place] 04/21/2023 10:03:08 06/11/2023 text/html 32 yowf RTC for 8 week f/u of Recurrent UTIs. Renal ultrasound and KUB on 05/22/2023 was unremarkable. At last visit on 04/21/2023 patient was started on Macrodantin suppression 50 mg daily. Patient reports since starting the medication she is not experienced any UTIs or UTI like symptoms. She denies any overt side effects from the medication. Reports urinary stream is good. Has chronic constipation, reports she will be seeing Dr. Taylor. She denies any dysuria or gross hematuria. Previous History: [32 yowf presents to the office for evaluation of reoccurring UTIs. Location is LUT. Quality is pressure and painful urination. Severity- varies. Reports that she started experiencing reoccurring UTI's approx 10 years ago, has had 3-4 UTIs this year, last UTI was approx 1 month ago. UTIs have all been treated with antibiotics, sxs typically improve after 2-3 days being on antibiotic ttx. When experiences UTI has dysuria, urinary urgency/frequency, low back pain, and occ gross hematuria. Has not had any labs or diagnostic tests performed. Currently, states f/c stream occ weak. Nocturia 1-2. Bowels has chronic constipation has seen Dr Brandon in the past and was on Linzess; however states she has not seen him in over 1 year so has not been taking the Linzess. Currently denies any dysuria, gross hematuria, flank pain, fevers, chills, nausea, or vomiting. Denies any urinary incontinence or DM. On Loestrin, doesnt have any menstrual cycles. UTIs are not r/t sexual intercourse. History of kidney stones at age 16, passed on her own. States is taking probiotics and AZO cranberry extract pills.] Juli Connelly NP, [address], [place], [address], [facility] & [place] 06/11/2023 13:39:18 09/02/2023 text/html Ms. Samuels is a pleasant 33-year-old female who presents to the office today for follow-up regarding chronic constipation. She reports life-long issues with constipation. She has been taking Linzess 290 mcg for the past 2 years. This has worked best compared to other prescription and OTC laxatives, but she still goes up to 1 week between BMs. She underwent colonoscopy September 2021 wtih poor prep and with normal colon in what was visualized. She has a history of natural childbirth as well as x3. I spent a total of 11 minutes during this real-time clinical encounter that was initiated by the patient which started at 0844 and ended at 0455. Consent was obtained to engage in telephonic service. Greater than 50% of the time spent was devoted to counseling and coordinating care including review of patient record, patient lab data and studies as well as discussing diagnostic evaluation and workup, planned therapeutic intervention and further disposition of care. Gaurav Lopez PA-C [address], [place], [address], [facility] - [facility] & [place] 09/02/2023 09:10:54 10/15/2023 text/html PREVIOUS (09/02/23 ): Ms. Samuels is a pleasant 33-year-old female who presents to the office today for follow-up regarding chronic constipation. She reports life-long issues with constipation. She has been taking Linzess 290 mcg for the past 2 years. This has worked best compared to other prescription and OTC laxatives, but she still goes up to 1 week between BMs. She underwent colonoscopy September 2021 wtih poor prep and with normal colon in what was visualized. She has a history of natural childbirth as well as x3. CURRENT (10/15/23): Ms. Samuels presents via telephonic encounter today for follow-up regarding chronic constipation. She has continued Linzess 290 mcg p.o. once daily. This provides mild relief, but she continues to have infrequent bowel movements. Motegrity was recently prescribed in addition to the Linzess, but she states that this was not approved by insurance due to requiring a PA. She denies any other physical complaints at this time. I spent a total of 6 minutes during this real-time clinical encounter that was initiated by the patient which started at 1430 and ended at 1436. Consent was obtained to engage in telephonic service. Greater than 50% of the time spent was devoted to counseling and coordinating care including review of patient record, patient lab data and studies as well as discussing diagnostic evaluation and workup, planned therapeutic intervention and further disposition of care. UVALDO Wiseman-June [address], [place], [address], [facility] - [place] & [place] 10/15/2023 15:00:05 OBGyn Episode No OBEpisode recorded.
--- OUTSIDE RECORDS SUMMARY | 2025-01-12 19:30 | XMS_ITS | Encounter Summary ---
Author Organization Healthcare Address [address] [place] [address] Care Team Providers Care Plaster Model And Mold Maker Name Role Phone Pcp, No Primary Care Provider Unavailabl e Encounter Details Date Type Department Care Team (Late st Contact Info) Description 12/01/2024 Telephone Obstetrics & Gynecology [address] [place] [address] Zoe Werner APRN, DNP [address] [place] [address] Social History Tobacco Use Types Packs/Day Years Used Date Smoking Tobacco: Never Smokeless Tobacco: Never Alcohol Use Standard Drinks/Week Comments Yes 0 (1 standard drink = 0.6 oz pur e alcohol) PHQ-2 Answer Date Recorded Patient Health Questionnaire-2 Score 0 12/02/2024 Comments No Sex and Gender Information Value [...] as of this encounter Miscellaneous Notes * Telephone Encounter - Jessica Amezquita RN - 12/02/2024 4:51 PM EDT Pt was seen in clinic today * Telephone Encounter - Jessica Amezquita RN - 12/01/2024 4:50 PM EDT Number is not available at this time, unable to leave vm * Telephone Encounter - Lizzie Dumont - 12/01/2024 3:06 PM EDT Clinical Concern/Question Reason for Call: patient called back to inform that she took another preg test and it was positive Best contact number: [phone] (home) Optimal time of day to reach caller: ANYTIME Additional comments/information from caller: Not Applicable Note: Please do not reply to this message. Follow-up communication and further actions as a result of this message need to be communicated with the patient directly, if the patient is not active onMyChart. If the patient is active on MyChart, they will receive notification of the communication/outcome via Obvious. * Telephone Encounter - Juliette Silva RN - 12/01/2024 1:55 PM EDT RN discussed with pt please refer to phone note * Telephone Encounter - Shantel Nolasco - 12/01/2024 12:04 PM EDT Clinical Concern/Question Reason for Call: Pt has some questions for a nurse about a preg test Best contact number: [phone] (mobile) Optimal time of day to reach caller: ANYTIME Additional comments/information from caller: None Note: Please do not reply to this message. Follow-up communication and further actions as a result of this message need to be communicated with the patient directly, if the patient is not active onMyChart. If the patient is active on MyChart, they will receive notification of the communication/outcome via Obvious. documented in this encounter Plan of Treatment [...] documented as of this encounter Care Teams Plaster Model And Mold Maker Relationship Specialty Start Date End Date Pcp, [place] [address] PCP - General Family Medicine 08/24/21 documented as of this encounter
--- OUTSIDE RECORDS SUMMARY | 2025-01-12 19:30 | XMS_ITS | Encounter Summary ---
Author Organization Healthcare Address [address] [place] [address] Care Team Providers Care Deep Submergence Vehicle Crewmember Name Role Phone Pcp, No Primary Care Provider Unavailabl e Reason for Visit * Reason Comments Med Refill Encounter Details Date Type Department Care Team (Late st Contact Info) Description 04/26/2021 Refill [facility] [employer] [facility] [address] [place] [address] Juliette Walton MD [address] [place] [address] Social History Tobacco Use Types [...] on filedocumented in this encounter Care Teams Deep Submergence Vehicle Crewmember Relationship Specialty Start Date End Date Pcp, No [address] [place] [address] PCP - General Family Medicine 08/24/21 documented as of this encounter
--- OUTSIDE RECORDS SUMMARY | 2025-01-12 19:30 | XMS_ITS | Encounter Summary ---
Author Organization Healthcare Address [address] [place] [address] Care Team Providers Care Slab Stripper Name Role Phone Pcp, No Primary Care Provider Unavailabl e Reason for Visit * Reason Comments Med Refill Encounter Details Date Type Department Care Team (Late st Contact Info) Description 05/13/2021 Refill [facility] SECURITY TECHNICIAN [address] [place] [address] Juliette Walton MD [address] [place] [address] Social History Tobacco Use Types [...] on filedocumented in this encounter Care Teams Slab Stripper Relationship Specialty Start Date End Date Pcp, No [address] [place] [address] PCP - General Family Medicine 08/24/21 documented as of this encounter
--- OUTSIDE RECORDS SUMMARY | 2025-01-12 19:30 | XMS_ITS | Encounter Summary ---
Author Organization Healthcare Address [address] [place] [address] Care Team Providers Care Manufacturing Engineering Professor Name Role Phone Pcp, No Primary Care Provider Unavailabl e Encounter Details Date Type Department Care Team (Latest Contact Info) Description 12/02/2024 Travel Social History Tobacco Use Types Packs/Day Years [...] Amezquita RN documented as of this encounter Plan of [...] documented as of this encounter Care Teams Manufacturing Engineering Professor Relationship Specialty Start Date End Date Pcp, [place] [address] PCP - General Family Medicine 08/24/21 documented as of this encounter
--- OUTSIDE RECORDS SUMMARY | 2025-01-12 19:30 | XMS_ITS | Encounter Summary ---
Author Organization Healthcare Address [address] [place] [address] Care Team Providers Care Fashion Buyer Name Role Phone Pcp, No Primary Care Provider Unavailabl e Encounter Details Date Type Department Care Team (Late st Contact Info) Description 12/03/2024 Telephone Obstetrics & Gynecology [address] [place] [address] Zoe Werner APRN, DNP [address] [place] [address] Social History Tobacco Use Types [...] on file documented as of this encounter Miscellaneous Notes * Telephone Encounter - Juliette Silva RN - 12/03/2024 3:45 PM EDT Pt aware of results * Telephone Encounter - Juliette Silva RN - 12/03/2024 3:17 PM EDT RN returned pt call. RN explained that results have not been read by a provider, but we will call and send her a [employer] message about the results when the provider has been able to read them. RN explained that RN will send a message to the provider that is covering Rolf Werner APRN MANUEL's tasks while she is out of the office to see if she will go on and read the result, however MD is in clinic at this time. Pt states that she wants to know the result by the end of the day or she will be going to a different clinic. RN explained we will call her as soon as we are able to. [employer] message sent to Dr. Soto. * Telephone Encounter - Shantel Nolasco - 12/03/2024 2:18 PM EDT Clinical Concern/Question Reason for Call: Pt is calling for results Best contact number: [phone] (mobile) Optimal time of day to reach caller: ANYTIME Additional comments/information from caller: None Note: Please do not reply to this message. Follow-up communication and further actions as a result of this message need to be communicated with the patient directly, if the patient is not active onMyChart. If the patient is active on MyChart, they will receive notification of the communication/outcome via [employer] documented in this encounter Plan of Treatment [...] documented as of this encounter Care Teams Fashion Buyer Relationship Specialty Start Date End Date Pcp, [place] [address] PCP - General Family Medicine 08/24/21 documented as of this encounter
--- OUTSIDE RECORDS SUMMARY | 2025-01-12 19:30 | XMS_ITS | Patient Health Record ---
Author Organization [facility] Address [address] [place] [address] Care Team Providers Care C T Tech Name Role Phone Unknown, PCP Primary Care Provider Unavailabl e Allergies Allergen (clinical drug ingredient) Drug/Non Drug Allergy documented on EMR Reaction Allergy Type Onset Date Status azithromycin Azithromycin Unknown Drug Allergy A ctive Reason For Referral No Information Medications Medication SIG (Take, Route, Frequency, Duration) Notes Start Date End Date Status Gabapentin 800 MG 1 tablet Orally Once a day Active clonazePAM 1 MG 1 tablet on the tong ue and allow to dissolve Orally Once a day Active Lo Loestrin Fe 1 MG-10 MCG / 10 MCG 1 tablet Orally Once a day A ctive Immunizations Vaccine Route Administration Date Status Comme [facility] z2023 FluBLOK, 18 y/o & Older, Quad PDF (0.5mL Admin) IM Intramuscular 07/03/2023 Administered Social History Tobacco Use: Social History Observation Description Date Details (start date - stop date) Never Smoker NA - NA Tobacco Use Question Answer Notes Are you a Never smoker Problems Problem Type SNOMED Code ICD Code Onset Dates Problem Status W/U Status Risk Notes Problem [id number] Nausea (R11.0) Active confirmed Problem [id number] Overweight (BMI 25.0-29.9) (E66.3) Active confirmed Plan Of Treatment No Information Insurance Providers Payer Name Payer Address Payer Phone Subscriber Number Group Number Insured Name Patient Relationship to Insured Coverage Start Date Coverage End Date [facility] MED[place] [address] [address] [place] [address] [id number] Shane Samuels Self - patient is the insured Medical (General) History Medical History History ICD Code BiPolar Anxiety Seizure disorder Surgical History Surgery Date(Month/Year) C sections Hospitalization History Reason Date(Month/Year) See above
--- OUTSIDE RECORDS SUMMARY | 2025-01-12 19:30 | XMS_ITS | Clinical Summary ---
Author Organization [facility] Address [address] [place] [address] Care Team Providers Care Supervisor Lump Room Name Role Phone Pcp, No Primary Care Provider Unavailabl e Allergies Active Allergy Reactions Criticality Noted Date Comments Erythromycin Nausea,Hives,Rash Medium 07/10/2010 Penicillin G Anaphylaxis High 07/10/2010 Medications methadone (Dolophine) 10 MG tablet Take 6 tablets by mouth daily. Active Active Problems Problem Noted Date Diagnosed Date Irritable bowel syndrome with constipation 09/02 Polyneuropathy, unspecified 07/24/2023 Tachycardia, unspecified 07/24/2023 Nocturia 06/11/2023 Other intervertebral disc degeneration, lumbar r egion 06/06/2023 Radiculopathy, lumbar region 06/06/2023 Insomnia, unspecified 05/06/2023 Neuralgia and neuritis, unspecified 05/06/2023 Unspecified osteoarthritis, unspecified site Syncope and collapse 11/16/2022 Encounter for gynecological examination without abnormal finding 03/08/2020 Assessment & Plan (08/09/2022 4:51 PM EST): - pap 01/2020 normal, but HRHPV positive, not 16 or 18. Pap 06/2021 normal - repeat pap today - UA negative - OCPs refilled - RTC as needed Assessment & Plan (07/11/2021 2:54 PM EST): - pap 01/2020 normal, but HRHPV positive, not 16 or 18 - repeat pap today Assessment & Plan (05/23/2021 11:48 AM EDT): - OCPs refilled - pap 01/2020 was negative, but positive for HRHPV not 16 or 18. She needs a repeat pap today. She declines today and says that she will reschedule. - RTC for pap Anxiety 03/11/2017 Bipolar 1 disorder 03/11/2017 Altered mental status 08/23/2016 Encounters Date Type Department Care Team Description 12/03/2024 Results Follow-Up Obstetrics & Gynecology [address] [place] [address] Sharonda Soto MD 12/03/2024 Telephone Obstetrics & Gynecology [address] [place] [address] Zoe Werner APRN, DNP 12/02/2024 3:45 PM EDT Office Visit Obstetrics & Gynecology [address] [place] [address] Zoe Werner APRN, DNP Missed menses (Primary Dx); Urinary urgency; Family planning education, guidance, and counseling; Elevated blood pressure reading in office without diagnosis of hypertension 12/02/2024 3:30 PM EDT Clinical Support Obstetrics & Gynecology [address] [place] [address] Missed menses 12/02/2024 Travel 12/01/2024 Telephone Obstetrics & Gynecology [address] [place] [address] Zoe Werner APRN, DNP 12/01/2024 Telephone Obstetrics & Gynecology [address] [place] [address] Zoe Werner APRN, DNP from Last 3 Months Immunizations Immunization Administration Dates Next Due HPV, Quadrivalent 12/22/2014 Hep B, Unspecified 09/03/2016 Influenza, injectable, quadrivalent 06/13/2015 Influenza, injectable, quadrivalent, preservativ e free 08/28/2016 Tdap 08/28/2016,07/03/2015 Family History Medical History Relation Name Comments Ovarian cancer Sister Relation Name Status Comments Sister Social History Tobacco Use Types Packs/Day Years Used Date Smoking Tobacco: Never Smokeless Tobacco: Never Tobacco Cessation:Counseling Given: Not Answered Alcohol Use Standard Drinks/Week Comments Yes 0 (1 standard drink = 0.6 oz pur e alcohol) PHQ-2 Answer Date Recorded Patient Health Questionnaire-2 Score 0 12/02/2024 Comments Unknown Sex and Gender Information Value Date Recorded Sex Assigned at Not on file Legal Sex Female 8:06 PM EDT Gender Identity Not on file Sexual Orientation Not on file Last Filed Vital Signs Vital Sign Reading Time Taken Comments Blood Pressure 143/94 12/02/2024 4:25 PM EDT Pulse 78 12/02/2024 4:12 PM EDT Temperature 37.3 C (99.2 F) 09/19/2023 1:12 PM EST Respiratory Rate 14 09/19/2023 1:12 PM EST Oxygen Saturation 98% 12/02/2024 4:12 PM EDT Inhaled Oxygen Concentration - - Weight 65.5 kg (144 lb 6.4 oz) 12/02/2024 4:12 P M EDT Height 162.6 cm (5' 4 ) 09/19/2023 1:12 PM EST Body Mass Index 24.79 09/19/2023 1:12 PM EST Plan of Treatment Health Maintenance Due Date Last Done Comments [facility]-/Child/Adol SDOH Screenings 1988 [facility]-Varicella Vaccines (1 of 2 - 13+ 2-dose series) 2001 [facility]- SDOH Screenings 2006 [facility]-Adult SDOH Screenings 2006 HPV Vaccines (2 - 3-dose series) 01/19/2015 12/22/2014 [facility]-Hepatitis B Vaccines (2 of 3 - 19+ 3-dose series) 10/01/2016 09/03/2016 [id number] Vaccine ( - season) 2024 [facility]-Influenza Vaccine (Season Ended) 2025 08/28/2016, 06/13/2015 [facility]-Depression Screening 12/02/2025 12/02/2024 [facility]-DTaP,Tdap,and Td Vaccines (3 - Td or Tdap) 08/28/2026 08/28/2016, 07/03/2015 [facility]-Pap Smear 09/19/2026 09/19/2023, 07/28, 07/11/2021, Additional history exists [facility]-Cervical Cancer Screening 09/19/2028 [facility]-HPV/Cotest 09/19/2028 09/19/2023, 07/28, 07/11/2021, Additional history exists [facility]-Zoster Vaccines (1 of 2) 2038 [facility]-HIV Screening Completed 10/16/2018 [facility]-Hepatitis C Screening Completed 10/16/2018, [facility]-HIB Vaccines Aged Out No longer e ligible based on patient's age to complete this topic [facility]-Hepatitis A Vaccines Aged Out No longer eligible based on patient's age to complete this topic [facility]-IPV Vaccines Aged Out No longer e ligible based on patient's age to complete this topic [facility]-Pneumococcal Vaccine: Pediatrics (0 to 5 Years) and At-Risk Patients (6 to 49 Years) Aged Out No longer eligible based on patient's age to complete this topic [facility]-Rotavirus Vaccines Aged Out No lo nger eligible based on patient's age to complete this topic Procedures Procedure Name Priority Date/Time Associated Diagnosis Comments HCG, QUANTITATIVE Routine 12/02/2024 4:3 5 PM EDT Missed menses POCT , URINE Routine 12/02/2024 4:13 PM EDT Missed menses POCT URINALYSIS DIPSTICK Routine 12/02/2024 4:11 PM EDT Urinary urgency URINE CULTURE Routine 12/02/2024 4:11 PM EDT Urinary urgency PAP TEST - CYTOLOGY Routine 09/19/2023 1 :46 PM EST Encounter for gynecological examination without abnormal finding HEPATITIS C ANTIBODY W/REFLEX TO HCV QUANT PCR Routine 10/16/2018 9:29 AM EDT HIV 1/2 ANTIBODY/ANTIGEN SCREEN WITH REFLEX TO HIV I/II DIFFERENTIATION Routine 10/16/2018 9:29 AM EDT from Last 3 Months or Most Recently Relevant to Health Maintenance Results * hCG, Total Beta, Quantitative, Plasma (12/02/2024 4:35 PM EDT) hCG, Total Beta <1 <5 mIU/mL 11:07 AM EDT [facility] Blood Venous blood specimen / Unknown Venipuncture / Unknown 12/02/2024 4:35 PM EDT 12/03/2024 10:18 AM EDT Narrative [facility] - 12/03/2024 11:07 AM EDT [...] methods or kits cannot be used interchangeably. Zoe Werner APRN, DNP LAB BLOOD ORDERABLES Fi nal Result [facility] [address] [place] [address] * POCT Urine (12/02/2024 4:13 PM EDT) [...] ENTE R/EDIT ORDERABLES Final Result * (ABNORMAL) POCT Urinalysis Dipstick (12/02/2024 4:11 PM EDT) POCT Urine Color Yellow POCT Urine Clarity Clear POCT Glucose Urine Negative Negative mg/dL POCT Bilirubin, Urine Negative Negative POCT Ketones, Urine Negative Negative mg/dL POCT Specific [place], Urine >=1.030 POCT Blood, Urine Negative Negative POCT pH, Urine 6.0 5.0 to 8.0 POCT Protein, Urine Negative Negative mg/dL POCT Urobilinogen, Urine 2(A) 0.2, 1 E.U./dL POCT Nitrite, Urine Negative Negative POCT Leukocyte Esterase, Urine Negative Negative Test Strip Lot Number [id number] Test Strip Lot Expiration 05/27/25 Urine Urine specimen obtained by clean catch procedure / Unknown 12/02/2024 4:11 PM EDT Zoe Werner APRN, DNP POINT OF CARE TEST ENTE R/EDIT ORDERABLES Final Result * (ABNORMAL) Urine Culture (12/02/2024 4:11 PM EDT) Culture <10,000 CFU/mL Mixed urogenital, fecal, or skin mary present. 12/05/2024 12:46 PM EDT [facility] Culture Streptococcus agalactiae (Beta Hemolytic Streptococcus, Group B)(A) 12/05/2024 12:46 PM EDT [facility] Comment: This isolate has been identified using the FDA Approved [employer] System Note: This organism is included in the Mixed Mary as listed above. Note: If this patient is and has a penicillin allergy please contact Microbiology [phone] to perform antibiotic susceptibility testing of Clindamycin. This isolate will be saved for one month. The organism value for this result has been updated. These results have been appended to the previously preliminary verified report. Urine Urine specimen obtained by clean catch procedure / Unknown Non-blood Collection / Unknown 12/02/2024 4:11 PM EDT 12/02/2024 6:58 PM EDT us Zoe Werner APRN, DNP LAB MICROBIOLOGY - GENE RAL ORDERABLES Final Result [facility] [address] [place] [address] * Pap Test (09/19/2023 1:46 PM EST) Case Report Cytology Case: [id number] Authorizing Provider: Zoe Werner APRN, DNP Collected: 09/19/2023 1346 Ordering Location: Obstetrics & Gynecology Received: 09/22/2023 1253 First Screen: Alexei Emerson Pathologist: Tami Oswald MD Specimen: ThinPrep Pap Test, Liquid-Based Cervical/Vaginal 10/08/2023 9:51 AM EDT [facility] Interpretation NEGATIVE FOR INTRAEPITHELIAL LESION OR MALIGNANCY 10/08/2023 9:51 AM EDT [facility] at 0951 EDT Other Findings Fungal organisms consistent with Puja species. Inflammatory change. 10/08/2023 9:51 AM EDT [facility] Specimen Adequacy Satisfactory for evaluation; endocervical/hollingsworth sformation zone component present. Slide imaged by the ThinPrep Imaging system and selected 22 clarke reviewed then full manual screening. 10/08/2023 9:51 AM EDT [facility] Cervical cytology is a screening test primarily for squamous cancers and precursors and has associated false negative and positive results. New technologies such as liquid based sampling may decrease but will not eliminate all false negative results. Regular screening and follow-up of unexplained clinical signs and symptoms are recommended to minimize false negative results. Please see the ASCCP website (www.asccp.org)fo r followup recommendations. If HPV testing was requested, correlation with the results is suggested (please call Microbiology at [phone] for results). 10/08/2023 9:51 AM EDT [facility] Menstrual Status Not Applicable 09/25 9:51 AM EDT [facility] Contraceptive History control pills 10/08/2023 9:51 AM EDT [facility] Screening Type Routine Screen 2023 9:51 AM EDT [facility] High Risk? No 10/08/2023 9:51 AM EDT [facility] HPV Testing Requested? Request HPV Testing Regardless of Pap Test Findings 10/08/2023 9:51 AM EDT [facility] Previous Cancer History No 10/08/2023 9:51 AM EDT [facility] Clinical Information Z01.419 - Encounter for gynecological examination without abnormal finding [ICD-10-CM] 10/08/2023 9:51 AM EDT [facility] Swab Vaginal and cervical cytologic material / Unknown Non-blood Collection / Unknown 09/19/2023 1:46 PM EST 09/22/2023 12:53 PM EST Zoe Werner APRN, DNP LAB CYTOLOGY ORDERABLES Final Result Performing Organization Address City/[facility]/ZIP Co de Phone Number [facility] [address] [place] [address] * HIV 1 & 2 Antibody/Antigen Screen (10/16/2018 9:29 AM EDT) HIV 1 Result NONREACTIVE Screening for HIV 1 and 2 antibodies is NONREACTIVE. No confirmatory testing is required. [facility] 10/16/2018 9:29 AM EDT 10/16/2018 1:00 PM EDT us Juliette Walton MD LAB BLOOD ORDERABLES Final Re sult [facility] * Hepatitis C Antibody (10/16/2018 9:29 AM EDT) Hepatitis C Antibody BEING REPEATED TO CONFIRM [facility] 10/16/2018 9:29 AM EDT 10/16/2018 1:00 PM EDT us Juliette Walton MD LAB BLOOD ORDERABLES Final Re sult [facility] from Last 3 Months or Most Recently Relevant to Health Maintenance Insurance [facility] MEDICAID [place] Care Teams Supervisor Lump Room Relationship Specialty Start Date End Date Pcp, Mariajose [address] [place] [address] PCP - General Family Medicine 08/24/21
--- OUTSIDE RECORDS SUMMARY | 2025-01-12 19:31 | XMS_ITS | Encounter Summary ---
Author Organization Healthcare Address [address] [place] [address] Care Team Providers Care Director Of Front Office Name Role Phone Pcp, No Primary Care Provider Unavailabl e Encounter Details Date Type Department Care Team (Late st Contact Info) Description 12/01/2024 Telephone Obstetrics & Gynecology [address] [place] [address] Zoe Werner APRN, MANUEL [address] [place] [address] Social History Tobacco Use Types [...] Encounter - Juliette Silva RN - 12/01/2024 1:48 PM EDT RN returned pt call. LMP:11/12. Period was supposed to start last night. Pt unsure if test is positive or if there is an indention line. Pt scheduled for annual with Rolf Werner APRN DNP for 12/02. RN recommended pt continue to test UPT at home with first urine tomorrow morning and to let us know if it ispositive. RN explained if it negative and period still has not started after a couple of days to let the clinic know and we will determine plan of care. Pt expressed understanding. * Telephone Encounter - Noreen Baxter - 12/01/2024 10:26 AM EDT Clinical Concern/Question Reason for Call: Pts period is late. Took a test and it was negative. Wondering if she took it too soon. Please call. Best contact number: [phone] (home) Optimal time of day to reach [...] will receive notification of the communication/outcome via [employer]. documented in this encounter Plan of Treatment [...] documented as of this encounter Care Teams Director Of Front Office Relationship Specialty Start Date End Date Pcp, [place] [address] PCP - General Family Medicine 08/24/21 documented as of this encounter
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
--- NOTE | 2025-01-12 19:53 | PC.NURSE ---
Provider at bed side.
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
--- NOTE | 2025-01-12 20:10 | PC.NURSE ---
PT to CT with radiology staff.
[2025-01-12 20:33] VITALS: BP 105/67; PULSE 61; RESP 18; TEMP 37; O2SAT 100
--- NOTE | 2025-01-12 20:40 | PC.NURSE ---
PT observed to have 2 packs of coban, 4x4 gauze, and two packs of mesh underwear being put in purse. This nurse questioned PT about hospital supplies in bag, PT stated I need to wrap my legs and my daughter peed herself because we have been here so long . Unware of other supplies that may be taken.
== END 2025-01-12 20:39 | disposition home or self-care (01) ==
PROVIDERS: Emergency Provider Emergency Medicine
DX: S16.1XXA Strain of muscle, fascia and tendon at neck level, initial encounter (principal); S39.012A Strain of muscle, fascia and tendon of lower back, initial encounter; V49.40XA Driver injured in collision with unspecified motor vehicles in traffic accident, initial encounter; Y92.410 Unspecified street and highway as the place of occurrence of the external cause
CPT/HCPCS: 72125; 72128; 72131; 99284

== ENCOUNTER 2025-03-14 11:07 | Emergency (ER) | payer MEDICAID, SELFPAY ==
[2025-03-14 11:15] VITALS: BP 144/97; PULSE 86; RESP 16; TEMP 36.7; O2SAT 98; BMI 24.9
--- OUTSIDE RECORDS SUMMARY | 2025-03-14 11:33 | XMS_ITS | Encounter Summary ---
Author Organization Healthcare Address [address] [place] [address] Care Team Providers Care Residential Sales Name Role Phone Pcp, No Primary Care Provider Unavailabl e Encounter Details Date Type Department Care Team ([facility] st Contact Info) Description 09/24/2023 Outside Procedure External Location [address] [place] [address] Sybil Arguelles RN [address] [place] [address] Social History Tobacco Use Types [...] PM EST Narrative 09/24/2023 2:58 PM EST [facility] [address] [place] [address] Name: SHANE SAMUELS Exam Date: 09/24/2023 : 1990 Age 33 Gender: F Physician: SYBIL ARGUELLES Facility: [facility] Facility HSV: Outpatient Exam: US BREAST LTD [...] Thank you for referring SHANE SAMUELS to [facility]. Legally authenticated by POPE LETTY Watkins 2023-09-24 14:39:19 Procedure Note Provider, [facility] - 09/24/2023 [place] [address] Name: SHANE SAMUELS Exam Date: 09/24/2023 : 1990 Age 33 Gender: F Physician: SYBIL ARGUELLES Facility: [facility] Facility HSV: Outpatient Exam: US BREAST LTD [...] Thank you for referring SHANE SAMUELS to [facility]. Legally authenticated by POPE LETTY Watkins 2023-09-24 14:39:19 us Sybil Arguelles RN IMG BI PROCEDURES Final Result documented in this encounter Visit Diagnoses Not on filedocumented in this encounter Additional Health Concerns Assessment Noted Time A fall risk assessment has been complete d for the patient 09/19/2023 1:22 PM EST A Body Mass Index follow-up plan has been documented for the patient 09/19/2023 1:46 PM EST documented as of this encounter Care Teams Residential Sales Relationship Specialty Start Date End Date Pcp, Mariajose [address] [place] [address] PCP - General Family Medicine 08/24/21 documented as of this encounter
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
--- OUTSIDE RECORDS SUMMARY | 2025-03-14 11:33 | XMS_ITS | Encounter Summary ---
Author Organization Healthcare Address [address] [place] [address] Care Team Providers Care Wafer Cleaner Name Role Phone Pcp, No Primary Care Provider Unavailabl e Reason for Visit * Reason Comments Med Refill Encounter Details Date Type Department Care Team (Late st Contact Info) Description 04/26/2021 Refill [place] CREAM SEPARATOR OPERATOR [address] [place] [address] Juliette Walton MD [address] [place] [address] Social History Tobacco Use Types [...] on filedocumented in this encounter Care Teams Wafer Cleaner Relationship Specialty Start Date End Date Pcp, No [address] [place] [address] PCP - General Family Medicine 08/24/21 documented as of this encounter
--- OUTSIDE RECORDS SUMMARY | 2025-03-14 11:33 | XMS_ITS | Encounter Summary ---
Author Organization Healthcare Address [address] [place] [address] Care Team Providers Care Cleaner Furniture Name Role Phone Pcp, No Primary Care Provider Unavailabl e Reason for Referral * Consultation (Routine) - Authorized Specialty Diagnoses / Procedures Referred By Rian t Referred To Contact Neurology Diagnoses Intractable seizure disorder (CMS/HCC) Abe Gutierrez MD [address] [facility] [address] [place] [address] Phone: tel: fax: Татьяна Douglas PA [address] [facility] [address] [place] [address] Phone: tel: fax: Referral ID Status Reason Start Date Expiration Date Visits Requested Visits Authorized [id number] Authorized Specialty Services Required 07/29/2024 01/28/2026 1 1 Encounter Details Date Type Department Care Team (Late st Contact Info) Description 07/29/2024 Community [facility] [address] [place] [address] Abe Gutierrez MD [address] [facility] [address] [place], [place] [id number] Intractable seizure disorder (CMS/HCC) (Primary Dx) Social [...] documented as of this encounter Care Teams Cleaner Furniture Relationship Specialty Start Date [place] [address] PCP - General Family Medicine 08/24/21 documented as of this encounter
--- OUTSIDE RECORDS SUMMARY | 2025-03-14 11:33 | XMS_ITS | Clinical Summary ---
Author Organization [facility] Address [address] [place] [address] Care Team Providers Care Care Program Resident Name Role Phone Pcp, No Primary Care [...] 1 disorder 03/11/2017 Altered mental status 08/23/2016 Immunizations Immunization Administration Dates Next Due HPV, [...] Health Maintenance Due Date Last Done Comments [facility]-Infant/Child/Adol SDOH Screenings 1988 [facility]-Varicella Vaccines (1 of 2 - 13+ 2-dose series) 2001 [facility]- SDOH Screenings 2006 [facility]-Adult SDOH Screenings 2006 HPV Vaccines (2 - 3-dose series) 01/19/2015 12/22/2014 [facility]-Hepatitis B Vaccines (2 of 3 - 19+ 3-dose series) 10/01/2016 09/03/2016 [facility]-DULFQ-12 Vaccine (1 - season) 2024 [facility]-Influenza Vaccine (#1) 2025 08/28/2016, [facility]-Depression Screening 12/02/2025 12/02/2024 [facility]-DTaP,Tdap,and Td Vaccines (3 - Td or Tdap) 08/28/2026 08/28/2016, 07/03/2015 [facility]-Pap Smear 09/19/2026 09/19/2023, 07/28, 07/11/2021, Additional history exists [facility]-Cervical Cancer Screening 09/19/2028 [facility]-HPV/Cotest 09/19/2028 09/19/2023, 07/28, 08/09/2022, Additional history exists [facility]-Zoster Vaccines (1 of [...] Procedure Name Priority Date/Time Associated Diagnosis Comments PAP TEST - CYTOLOGY Routine 09/19/2023 1 :46 PM EST Encounter for gynecological examination without abnormal finding HEPATITIS C ANTIBODY W/REFLEX TO HCV QUANT PCR Routine 10/16/2018 9:29 AM EDT HIV 1/2 ANTIBODY/ANTIGEN SCREEN WITH REFLEX TO HIV I/II DIFFERENTIATION Routine 10/16/2018 9:29 AM EDT from Last 3 Months or Most Recently Relevant to Health Maintenance Results * Pap Test (09/19/2023 1:46 PM EST) Case Report Cytology Case: [id number] Authorizing Provider: Zoe Werner APRN, DNP Collected: 09/19/2023 1346 Ordering Location: Obstetrics & Gynecology Received: 09/22/2023 1253 First Screen: Alexei Emerson Pathologist: Tami Oswald MD Specimen: ThinPrep Pap Test, Liquid-Based Cervical/Vaginal 10/08/2023 9:51 AM EDT [facility] Interpretation NEGATIVE FOR INTRAEPITHELIAL LESION OR MALIGNANCY 10/08/2023 9:51 AM EDT [facility] at 0951 EDT Other Findings Fungal organisms consistent with Puja species. Inflammatory change. 10/08/2023 9:51 AM EDT [facility] Specimen Adequacy Satisfactory for evaluation; endocervical/hollingsworth sformation zone component present. Slide imaged by the ThinPrep Imaging system and selected 22 clarke reviewed then full manual screening. 10/08/2023 9:51 AM EDT [facility] Cervical cytology is a screening test [...] results is suggested (please call Microbiology at [phone] for results). 10/08/2023 9:51 AM EDT [facility] Menstrual Status Not Applicable 09/25 9:51 AM EDT [facility] Contraceptive History control pills 10/08/2023 9:51 AM EDT [facility] Screening Type Routine Screen 2023 9:51 AM EDT [facility] High Risk? No 10/08/2023 9:51 AM EDT [facility] HPV Testing Requested? Request HPV Testing Regardless of Pap Test Findings 10/08/2023 9:51 AM EDT [facility] Previous Cancer History No 10/08/2023 9:51 AM EDT [facility] Clinical Information Z01.419 - Encounter for gynecological examination without abnormal finding [ICD-10-CM] 10/08/2023 9:51 AM EDT [facility] Swab Vaginal and cervical cytologic material / Unknown Non-blood Collection / Unknown 09/19/2023 1:46 PM EST 09/22/2023 12:53 PM EST Zoe Werner RN LAB CYTOLOGY ORDERABLES Final Result [facility] [address] [place] [address] * HIV 1 & 2 Antibody/Antigen Screen (10/16/2018 9:29 AM EDT) HIV 1 Result NONREACTIVE Screening for HIV 1 and 2 antibodies is NONREACTIVE. No confirmatory testing is required. [facility] 10/16/2018 9:29 AM EDT 10/16/2018 1:00 PM EDT us Juliette Walton MD LAB BLOOD ORDERABLES Final Re sult Performing Organization Address [facility] Co de Phone Number [facility]QUEST * Hepatitis C Antibody (10/16/2018 9:29 AM EDT) Hepatitis C Antibody BEING REPEATED TO CONFIRM [facility] 10/16/2018 9:29 AM EDT 10/16/2018 1:00 PM EDT us Juliette Walton MD LAB BLOOD ORDERABLES Final Re sult [facility] from Last 3 Months or Most Recently Relevant to Health Maintenance [place] [address] [place] [address] MEDICAID [place] Care Teams Care Program Resident Relationship Specialty Start Date End Date Pcp, No [address] [place] [address] PCP - General Family Medicine 08/24/21
--- OUTSIDE RECORDS SUMMARY | 2025-03-14 11:33 | XMS_ITS | Encounter Summary ---
Author Organization Healthcare Address [address] [place] [address] Care Team Providers Care Membership Sales Advisor Name Role Phone Pcp, No Primary Care Provider Unavailabl e Reason for Visit * Reason Comments Med Refill Encounter Details Date Type Department Care Team (Late st Contact Info) Description 04/11/2021 Refill [place] SPOOL CLEANER HAND [address] [place] [address] Juliette Walton MD [address] [place] [address] Social History Tobacco Use Types [...] on filedocumented in this encounter Care Teams Membership Sales Advisor Relationship Specialty Start Date End Date Pcp, No [address] [place] [address] PCP - General Family Medicine 08/24/21 documented as of this encounter
--- OUTSIDE RECORDS SUMMARY | 2025-03-14 11:33 | XMS_ITS | Clinical Summary ---
Author Organization [facility] Address [address] [place] [address] Care Team Providers Care Mosaic Floor Layer Name Role Phone Panda Wang Primary Care Provider [phone] Allergies Active Allergy Reactions Criticality Noted Date Comments Erythromycin Rash Low 03/11/2017 Medications LO LOESTRIN FE 1 MG-10 MCG / 10 MCG tablet 9 Active SUMAtriptan (IMITREX) 50 MG tabletIndication s:Migraine without aura and without status migrainosus, not intractable TAKE ONE TABLET BY MOUTH AT ONSET OF HEADACHE, MAY REPEAT IN 2 HOURS 9 tablet 4 9 Active ondansetron (ZOFRAN) 8 MG tabletIndication s:Nausea Take 1 tablet by mouth Every 8 (Eight) Hours As Needed for Nausea or Vomiting. for nausea 20 tablet 4 9 Active citalopram (CeleXA) 40 MG tabletIndication s:Bipolar 1 disorder TAKE ONE TABLET BY MOUTH DAILY 90 tablet 4 0 Active ARIPiprazole (ABILIFY) 15 MG tabletIndication s:Bipolar 1 disorder TAKE ONE TABLET BY MOUTH DAILY 90 tablet 4 0 Active levETIRAcetam (KEPPRA) 1000 MG tabletIndication s:Post traumatic seizure disorder Take 1 tablet by mouth 2 (Two) Times a Day. 180 tablet 3 1 Active linaclotide (Linzess) 290 MCG capsule capsuleIndicatio ns:Chronic idiopathic constipation Take 1 capsule by mouth Every Morning Before Breakfast. 30 capsule 1 Active sulfamethoxazole -trimethoprim (Bactrim DS) 800-160 MG per tabletIndication s:Acute cystitis with hematuria Take 1 tablet by mouth 2 (Two) Times a Day. 14 tablet 1 Active naproxen (Naprosyn) 500 MG tabletIndication s:Acute bilateral low back pain without sciatica Take 1 tablet by mouth 2 (Two) Times a Day With Meals. 20 tablet 1 Active doxycycline (VIBRAMYCIN) 100 MG capsuleIndicatio ns:Black spider bite, accidental or unintentional, subsequent encounter Take 1 capsule by mouth 2 (Two) Times a Day. 20 capsule 1 Active mupirocin (Bactroban) 2 % ointmentIndicati ons:Black spider bite, accidental or unintentional, subsequent encounter Apply topically to the appropriate area as directed 3 (Three) Times a Day. 22 g 1 Active HYDROcodone-acet aminophen (Newton) 5-325 MG per tabletIndication s:Black spider bite, accidental or unintentional, subsequent encounter Take 1 tablet by mouth Every 6 (Six) Hours As Needed for Moderate Pain . 12 tablet 1 Active hydrOXYzine pamoate (VISTARIL) 100 MG capsuleIndicatio ns:Anxiety TAKE ONE CAPSULE BY MOUTH THREE TIMES A DAY NEEDED FOR ANXIETY 90 capsule 1 Active Active Problems Problem Noted Date Diagnosed Date Weight gain 06/03/2019 Dependence on nicotine from cigarettes 7 Post traumatic seizure disorder 03/11/2017 Bipolar 1 disorder 03/11/2017 PTSD (post-traumatic stress disorder) 03/11/2017 Anxiety 03/11/2017 Migraine without aura and wi thout status migrainosus, not intractable 03/11/2017 Resolved Problems Problem Noted Date Diagnosed Date Resolved Date Class 1 obesity due to exces s calories without serious comorbidity with body mass index (BMI) of 30.0 to 30.9 in adult 06/03/201903/2020 Immunizations Immunization Administration Dates Next Due HPV Quadrivalent 12/22/2014 Hep B, Unspecified 09/03/2016 Tdap 08/28/2016,07/03/2015 Family History Medical History Relation Name Comments Diabetes Father Migraines Father Diabetes Maternal Grandfather Hypertension Maternal Grandfather Arthritis Maternal Grandmother Diabetes Mother Mental illness Mother Migraines Mother Diabetes Sister Mental illness Sister Relation Name Status Comments Father Maternal Grandfather Maternal Grandmother Mother Sister Social History Tobacco Use Types Packs/Day Years Used Date Smoking Tobacco: Former Cigarettes Q uit: 02/02/2018 Smokeless Tobacco: Never Tobacco Cessation:Ready to Q uit: No; Counseling Given: Yes Alcohol Use Standard Drinks/Week Comments No 0 (1 standard drink = 0.6 oz pur e alcohol) Abuse Screen Answer Date Recorded Unsafe at Home or Work/School Not on file Feels Threatened by Someone? Not on file 03/2023 Does Anyone Keep You from Co ntacting Others or Doint Things Outside the Home? Not on file 05/05/2023 Physical Sign of Abuse Present Not on file 1 Housing Stability Answer Date Recorded Current Living Arrangements Not on file 03/2023 Potentially Unsafe Housing Conditions Not on mansoor e 05/05/2023 Family and Community Support Answer Deven e Recorded Help with Day-to-Day Activities Not on file 05/05/2023 Lonely or Isolated Not on file 05/05/2023 Employment Answer Date Recorded Do you want help finding or keeping work or a jeffery b? Not on file 05/05/2023 Disabilities Answer Date Recorded Concentrating, Remembering, or Making Decisions Difficulty Not on file 05/05/2023 Doing Errands Independently Difficulty Not on fi le 05/05/2023 Education Answer Date Recorded Help with school or training? Not on file Preferred Language Not on file 05/05/2023 Comments Unknown Sex and Gender Information Value Date Recorded Sex Assigned at Not on file Legal Sex Female 10:26 AM EDT Gender Identity Not on file Sexual Orientation Not on file Last Filed Vital Signs Vital Sign Reading Time Taken Comments Blood Pressure 120/84 01/31/2021 12:39 PM EDT Pulse 75 01/31/2021 12:39 PM EDT Temperature 36.8 C (98.2 F) 01/31/2021 12:39 PM EDT Respiratory Rate 18 01/31/2021 12:39 PM EDT Oxygen Saturation 97% 01/31/2021 12:39 PM EDT Inhaled Oxygen Concentration - - Weight 81 kg (178 lb 9.6 oz) 01/31/2021 12:39 PM EDT Height 162.6 cm (5' 4 ) 01/31/2021 12:39 PM EDT Body Mass Index 30.66 01/31/2021 12:39 PM EDT Plan of Treatment Health Maintenance Due Date Last Done Comments Annual Gynecologic Pelvic an d Breast Exam 1990 ANNUAL PHYSICAL 05/05/2016 COVID-19 Vaccine ( - 2023-2 5 season) 2024 INFLUENZA VACCINE 04/27/2025 TDAP/TD VACCINES (4 - Td or Tdap) 08/28/2026 08/28/2016, 07/28/2016 (Patient-Reported (Performed Externally)), 07/03/2015 HEPATITIS C SCREENING Completed 08/27/2016 Pneumococcal Vaccine 0-49 Aged Out No longer eligible based on patient's age to complete this topic Insurance [employer] Care Teams Mosaic Floor Layer Relationship Specialty Start Date End Date [place]anda [place] [address] PCP - General Physician Brisket Puller 08/12/19
--- OUTSIDE RECORDS SUMMARY | 2025-03-14 11:33 | XMS_ITS | Encounter Summary ---
Author Organization [facility] Address [address] [place] [address] Care Team Providers Care Reed Cleaner Name Role Phone Pcp, No Primary Care Provider Unavailabl e Reason for Visit * Reason Comments Med Refill Encounter Details Date Type Department Care Team (Late st Contact Info) Description 05/13/2021 Refill [place] [facility] [address] [place] [address] Juliette Walton MD [address] [place] [address] Social History Tobacco Use Types [...] on filedocumented in this encounter Care Teams Reed Cleaner Relationship Specialty Start Date End Date Pcp, No [address] [place] [address] PCP - General Family Medicine 08/24/21 documented as of this encounter
--- OUTSIDE RECORDS SUMMARY | 2025-03-14 11:33 | XMS_ITS | Patient Health Record ---
Author Organization [facility] Address [address] [place] [address] Care Team Providers Care Tablet Making Machine Operator Name Role Phone Unknown, PCP Primary Care [...] Immunizations Vaccine Route Administration Date Status Comme [facility] z2023 FluBLOK, 18 y/o & Older, Quad PDF (0.5mL Admin) IM Intramuscular 07/03/2023 Administered Social History Tobacco Use: Social History Observation Description Date Details (start date - stop date) Never Smoker NA - NA Tobacco Use Question Answer Notes Are you a Never smoker Problems Problem Type SNOMED Code ICD Code Onset Dates Problem Status W/U Status Risk Notes Problem Nausea (428491864) Nausea (R11.0) Active confirmed Problem Overweight (BMI 25.0-29.9) (E66.3) Active confirmed Plan Of Treatment No Information Insurance Providers Payer Name Payer Address Payer Phone Subscriber Number Group Number Insured Name Patient Relationship to Insured Coverage Start Date Coverage End Date [employer] [place] [employer] [address] [address] [place] [address] [id number] Shane Samuels Self - patient is the insured Medical (General) History Medical History History ICD Code BiPolar Anxiety Seizure disorder Surgical History Surgery Date(Month/Year) C sections Hospitalization History Reason Date(Month/Year) See above
--- OUTSIDE RECORDS SUMMARY | 2025-03-14 11:34 | XMS_ITS | Patient Health Record ---
Author Organization [facility] Address [address] [facility] [address] [place] [address] Care Team Providers Care Tube Rebuilder Name Role Phone ArmaanPriscila pereyra [facility] [phone] Reason For Referral No Information Social History Social History Additional Details Category Social Info Options Details Miscellaneous: Caffeine: CAFFEINE USE: 1 Plan Of Treatment No Information Medical (General) History Medical History History ICD Code Bipoloar disorder MENSTR FLOW: Light ABORTIONS: 2 Surgical History Surgery Date(Month/Year) c/s
--- NOTE | 2025-03-14 11:42 | CT_ITS ---
FINAL REPORT TECHNIQUE: Axial images were obtained of the cervical spine by computed tomography. Coronal and sagittal reconstruction process performed. This study was performed with techniques to keep radiation doses as low as reasonably achievable (ALARA). Individualized dose reduction techniques using automated exposure control or adjustment of mA and/or kV according to the patient''s size were employed. CLINICAL HISTORY: C spine tenderness after fall FINDINGS: Cervical vertebrae show normal height. Disc spaces are well-preserved. There is no malalignment. The facets are properly aligned. IMPRESSION: No fracture. Reviewed, Interpreted and Dictated by Fernando Denis MD Transcribed by Hilda Hackett Authenticated and [facility]
--- NOTE | 2025-03-14 11:42 | CT_ITS ---
FINAL REPORT TECHNIQUE: Axial CT images were performed through the head. Coronal reformatted images were submitted. This study was performed with techniques to keep radiation doses as low as reasonably achievable (ALARA). Individualized dose reduction techniques using automated exposure control or adjustment of mA and/or kV according to the patient's size were employed. CLINICAL HISTORY: Fall, posterior head innjury FINDINGS: The ventricles are normal in size. There is no evidence of hemorrhage. There is no mass or edema identified. There is no abnormal extra-axial fluid seen. The sinuses demonstrate lobular mucoperiosteal thickening of the right maxillary sinus consistent with chronic sinusitis. IMPRESSION: No acute intracranial process. Reviewed, Interpreted and Dictated by Fernando Denis MD Transcribed by Hilda Hackett Authenticated and . [facility]
--- NOTE | 2025-03-14 12:45 | ED_ITS ---
Discharge Plan Disposition Patient Disposition: Home, Self-Care Condition: Good Prescriptions Prescriptions: New methocarbamol 750 mg tablet 1,500 mg PO Q8H Qty: 42 0RF No Action cephalexin 500 mg capsule 1,000 mg PO BID 7 Days Qty: 28 0RF fluconazole 150 mg tablet 150 mg PO Q3D Qty: 2 0RF prednisone 20 mg tablet 40 mg PO DAILY 5 Days Qty: 10 0RF methocarbamol 750 mg tablet 1,500 mg PO TID 5 Days Qty: 30 0RF Referrals Follow up/Referrals: Provider,Referral, MD [Primary Care Provider, Medical] - See instructions Activity Restrictions/Add. Instructions Additional Instructions/Restrictions: You can take Robaxin for pain or muscle relaxation. You can add ibuprofen and Tylenol to this. If you have any persistent symptoms she should follow-up with your primary care provider. If you have any new or worsening symptoms you can return to the emergency department for further evaluation Clinical Impressions Clinical Impression: Fall, Concussion Print Language Print Language: Serbian Discharge ED Provider: Donnell Wheat Adult HPI General Chief complaint: Head Injury Stated complaint: AO- 03/13 fall ,head,blurry vision,nose/ear bleed Time Seen by Provider: 03/14/25 11:15 Mode of Arrival: Ambulatory Source of Information: Patient Description of Symptoms (Recalled from ER Triage Doc. by RN): Patient states about 2300 last night she was standing on a stool trying to adjust something on her tv and lost her balance and fell and hit the back of her head on the floor. Patient denies loss of consciousness but states this morning she is having bleeding from her right ear, dizziness and bleeding from nose. History of Present Illness HPI narrative: This is a 34-year-old female patient who is presented to the Emergency Department today for evaluation of posterior head trauma. She states last night she was standing on the back of her couch and was dusting cobwebs off the ceiling when she fell backwards off of the couch and impacted the posterior aspect of her head on the ground. She did note a knot on the back of her head last night that persisted into this morning. When she woke up she was having a headache as well as some blurred vision. She states that she has also been experiencing some pain in the back of the neck. She has not noticed any motor deficits or sensory changes. She has not had any difficulty with her gait. She has not taken anything for her symptoms of headache at home. She did have a nosebleed this morning several hours after the accident, however that has since stopped. She also reported to the nursing staff that she felt that her pupils were unequal at home. She did not experience loss of consciousness during this fall. Related Data Previous Rx's ?Medication ?Instructions ?Recorded cephalexin 500 mg capsule 1,000 mg (2 x 500 mg) PO BID 7 09/15/24 days #28 caps fluconazole 150 mg tablet 150 mg PO Q3D 2 doses #2 tab s 09/15/24 methocarbamol 750 mg tablet 1,500 mg (2 x 750 mg) PO T ID 5 01/12/25 days #30 tabs prednisone 20 mg tablet 40 mg (2 x 20 mg) PO DAILY 5 days 01/12/25 #10 tabs methocarbamol 750 mg tablet 1,500 mg (2 x 750 mg) PO Q 8H #42 03/14/25 tabs Allergies Allergy/AdvReac Type Severity Reaction Status Date / Time azithromycin (From Zithromax) AdvReac Unknown Verified 03/14/25 11:21 allergy reaction [facility] Disclaimer: The information contained in this section may have been updated after the patient was seen, as this information can be updated by other users. Medical History Neuropathic pain Manic bipolar I disorder Depression Anxiety Surgical History H/O: Family History Other Unknown family medical history Social History Smoking Status: Never smoker alcohol intake: never substance use type: denies use current occupational status: employed Travel in the last 8 weeks?: None Have you lived/traveled outside US in past 30 days?: No Contact w/someone who lives/traveled outside US past 30 days?: No Exposure to someone with infectious disease in past 14 days?: No Do you have a fever (greater than 100.4 F or 38 C)?: No Have you tested positive for COVID-19?: No Exposed to someone with COVID-19 in past 14 days?: No Do you have a sore throat?: No Do you have a cough?: No Do you have any weakness?: No Do you have any diarrhea?: No Are you experiencing any unusual bleeding?: No Do you have any muscle aches/pain?: No Do you have any abdominal pain?: No Are you experiencing loss of taste or smell?: No Other Medical History Have you received the Flu Vaccine for this season: No Have you received the Pneumonia Vaccine: No ROS Obtained: Yes Systems reviewed as appropriate & no additional complaints except as documented Physical Exam General General appearance: other (See MDM) Respiratory Respiratory exam: Present other (See MDM) Cardiovascular Cardiovascular exam: Present other (See MDM) Neurological Exam Neurological exam: Present other (See MDM) Medical Decision Making Medical Records Medical records reviewed: Yes I reviewed the patient's medical records. Screening: Per USPSTF and CDC recommendations, given the prevalence of disease in our region, it is our hospital?s policy to screen for HIV and viral Hepatitis for all patients aged 18 and over and those with ongoing risk factors. Anvid Inquiry Pt receiving controlled substance: No Navid was queried for this patient: No Vital Signs: 03/14/25 11:15 Temperature 98.1 F Temperature Source Oral Pulse Rate [Right Radial] 86 Respiratory Rate 16 Blood Pressure [Right Arm] 144/97 H Blood Pressure Mean [Right Arm] 112 Blood Pressure Source [Right Arm] Automatic Cuff Blood Pressure Position [Right Arm] Sitting 02 Sat by Pulse Oximetry 98 Oxygen Delivery Method Room Air Orders (Tests/Meds): ED MEDICATIONS Discontinued Medications Generic Name Dose Route Start Last Admin Trade Name Freq PRN Reason Stop Dose Admin Acetaminophen 1,000 mg 03/14/25 11:43 03/14/25 11:54 Acetaminophen 500mg Tab PO 03/14/25 11:44 Not Given ONCE ONE Ibuprofen 400 mg 03/14/25 11:43 03/14/25 11:54 Ibuprofen 400 Mg Tablet PO 03/14/25 11:44 Not Given ONCE ONE Methocarbamol 1,500 mg 03/14/25 11:43 03/14/25 11:54 Methocarbamol 500mg Tablet PO 03/14/25 11:44 Not Given ONCE ONE ORDERS Category Date Time Status CT cervical spine wo con Stat Cat Scan 03/14/25 11:[address] head/brain wo con Stat Cat Scan 03/14/25 11:42 Completed Medical Decision Narrative: In summary this is a 34-year-old female patient who is presenting to the emergency department today 24 hours after posterior head trauma yesterday evening. She describes falling off the back of the couch and hitting the posterior aspect of her head on the ground. She is now experiencing headache as well as posterior neck pain. On initial evaluation of the patient they were resting comfortably in no acute distress and nontoxic in appearance. They are hemodynamically stable, saturating well room air, and are neurologically intact. On physical examination she has a posterior scalp hematoma without laceration. No midface instability or jaw malocclusion. No intraoral lacerations or lesions. No nasal septal hematoma. She does have some blood in the right ear canal with an excoriation present but there is no evidence of hemotympanum posterior to the TM bilaterally. She has no tenderness along the basilar skull. She does have tenderness in the cervical spine, however she has no tenderness in the thoracic or lumbar spine. She has 5-5 strength in bilateral upper and lower extremities. Normal sensation in all terminal nerve distributions. No chest wall or abdominal wall tenderness. Pelvis is stable. Differential diagnosis includes intracranial hemorrhage, skull fracture, cervical spine fracture, others. Initial interventions included 1000 mg of acetaminophen as well as 4 mg of ibuprofen and 1500 mg of Robaxin. We did proceed with a CT scan of the head and cervical spine. The CTs were personally turbid by me and demonstrated no large intracranial hemorrhages or obvious cervical spine fractures. Official radiology read is in agreement and states that there is no acute abnormality. On repeat evaluation of the patient her symptoms had somewhat improved. We will discharge her home with a prescription for Robaxin and continue having her take ibuprofen and Tylenol at home. My overall suspicion is that she likely has an underlying concussion from the head injury yesterday. I have asked her to follow-up with her primary care physician if she has persistent symptoms. At this time all questions have been answered all parties are agreeable with the decision to discharge home Critical Care Critical Care Time Critical Care Time: No
[2025-03-14 12:54] VITALS: BP 135/99; PULSE 62; RESP 18; TEMP 36.9; O2SAT 100
== END 2025-03-14 12:59 | disposition home or self-care (01) ==
PROVIDERS: Emergency Provider Student in an Organized Health Care Education/Training Program
DX: S06.0X0A Concussion without loss of consciousness, initial encounter (principal); R42 Dizziness and giddiness; W08.XXXA Fall from other furniture, initial encounter
CPT/HCPCS: 70450; 72125; 99282; 99285